=== PATIENT | female | born 1955 | race Caucasian/White ===

== ENCOUNTER → 2016-09-22 08:37 | Day surgery (SDC) | payer BC ==
[~2016-09-22 08:37] MED LIST: Buffered Lidocaine 1% SYRIN* 3 ML/SYR SYRINGE INTRADERM ONE; Bupivacaine 0.25% EPI 200,000* 30 ML SDV ONE; Bupivacaine 0.25% SDV* 30 ML ONE; DiMENhydriNATE IV* 50 MG/ML VIAL IV PUSH PRN; Ketorolac INJ* 30 MG/ML 1 ML VIAL IV PRN; Lidocaine 2% PF* 5 ML VIAL ONE; Midazolam* 1 MG/ML 2 ML VIAL (2 MG) ONE; Propofol* 10 MG/ML 20 ML BTL IV PUSH ONE; ROPIVACAINE 5 MG/ML 30 ML BTL (0.5%) ONE; Sodium Citrate/Citric Acid* 15 ML UDC ONE; Sodium Citrate/Citric Acid* 15 ML UDC PO ONE; ceFAZolin 2 GM PREMIX(*) 2 GM/50 ML BAG IVPB ONE; fentaNYL* 50 MCG/ML 2 ML VIAL (100 MCG VIAL) IV PRN; fentaNYL* 50 MCG/ML 2 ML VIAL (100 MCG VIAL) ONE
[2016-09-22 14:23] VITALS: BP 111/52
--- NOTE | 2016-09-23 14:56 | OP ---
DATE OF OPERATION: 09/22/16 [facility] DATE OF : 57 SURGEON: Sarai Kapoor MD WALL ATTENDANT: DINA Jiang ANESTHESIOLOGIST: Boom Schofield DO ANESTHESIA: General, interscalene block. PRE-OP DIAGNOSES: Right shoulder high-grade partial thickness rotator cuff tear , bicipital tendinitis, and acromioclavicular joint arthritis. POST-OP DIAGNOSES: Right shoulder high-grade partial thickness rotator cuff tear, bicipital tendinitis, and acromioclavicular joint arthritis. OPERATIVE PROCEDURE: 1. Right shoulder arthroscopy with glenohumeral debridement. 2. Subacromial decompression with acromioplasty. 3. Rotator cuff repair. 4. Distal clavicle excision. 5. Subpectoral biceps tenodesis. INDICATIONS: Paul Rosales is a 61-year-old female, who has had at least 6- month history of right shoulder pain. She is diagnosed with rotator cuff tendinitis, bicipital tendinitis, and AC joint arthritis. She has failed nonoperative management including physical therapy. She declined injection, but then she also tried anti-inflammatories. After extensive discussion, the risks and benefits of surgery versus nonoperative treatment, she elected to proceed with surgery. Risks and benefits were discussed at length included but were not limited to bleeding, infection, damage to nerves, vessels, surrounding structures, the wound nonhealing, persistent pain, failure of the rotator cuff fracture, need for further surgeries, stiffness, scarring, loss of motion, incomplete relief of symptoms, risk of anesthesia, and risk of DVT. She agreed. She also was diagnosed with strep throat approximately a week prior to surgery. She completed a course of antibiotics and was cleared by her primary care physician. IMPLANTS USED: One Healicoil, one MULTIFIX, and one Q-FIX 2.8 mm. COMPLICATIONS: None. ESTIMATED BLOOD LOSS: Minimal. DESCRIPTION OF PROCEDURE: The patient was greeted in the preoperative area by the attending surgeon. Correct extremity was marked and the consent was confirmed. The patient was then brought back to the operative suite, where she was placed in supine position on the operating table. She then underwent interscalene nerve block by the anesthesiologist after which she underwent general anesthesia with LMA intubation. The patient was then placed in the left lateral decubitus position with an axillary roll. All bony prominences were padded. She was supported with a peg board. The right shoulder was draped unsterile with 10 pounds of traction. After appropriate surgical pause indicating site, side, procedure, administration of antibiotics, the standard posterolateral portal was made sharply with an 11 blade. The scope was introduced through the joint and the joint was examined. There was abundant hyperemia in the joint particularly anteriorly in the interval, in the recess, there was abundant scar. The MGHL was very thick. The humeral head had had grade 0 to 1 changes. The glenoid had grade 0 to 1 changes. The posterior and anterior labrum had unstable fraying. The superior labrum had unstable fraying as well. The biceps was inflamed and irritated. Even at the stump, there was erythema and injection. At this point, the anterior portal was made in an outside-in fashion. The shaver was used to debride the anterior, posterior, and superior labrum. A tenotomy was then done using an arthroscopic biter. The stump was shaved back. The inferior recess was intact. The infraspinatus was intact. Supraspinatus had high-grade partial thickness tearing, which was then marked by a PDS suture. The subscap was then identified after small lysis of adhesion that was present anteriorly. The abundant scar tissue was then removed. The subscap was identified and found to be intact. At this point, the debridement was complete and attention was directed to the subacromial space. The scope was repositioned in the subacromial space and there was abundant bursa that was present, that was hyperemic. The lateral portal was made in an outside-in fashion and the shaver was used to debride the soft tissue back. This exposed moderate anterolateral spur, which was then skeletonized using the electrocautery device. The spur was further identified. At this point, the electrocautery device was carried over to the AC joint, which had abundant arthritis. The 4.0 oval over bur was then used to do a small acromioplasty, which carried over to co-plane the AC joint to assist further that portion of the procedure. Once the bursa and all loose debris was removed, attention was directed to the distal clavicle. The bur was brought into the anterior portal. Approximately 8 mm of the distal clavicle was then removed using the bur. This was then checked by confirming via the scope as well as doing gentle mobilization of the clavicle, which demonstrated no further rubbing. After this was complete, final images were obtained. All fluid and debris were removed from this portion. Attention was directed to the rotator cuff. This was probed at the area of the undersurface tear and found to be quite thin. Incision was made to reattach anteriorly. This was then released using the blade as well as the electrocautery device. Once the rotator cuff was then released of its insertion , the greater tuberosity was then prepared using the shaver as well as the rasp to allow for good bony bleeding edge. At this point, decision was made to place one anchor in the middle area of the footprint. The sutures were packed in a horizontal mattress configuration and tied down using arthroscopic knot tying. The tails from the suture were then passed through a MULTIFIX anchor, which was then used and mounted with excellent fixation to the lateral row. At this point, final images were obtained. The shoulder was taken through range of motion and found to be intact. All fluid and debris were removed. Attention was directed to the biceps tenodesis. The bed was airplaned to the right side. The anterior aspect of the shoulder was then prepped again using ChloraPrep. A 15-blade was then used to make an incision in line with the biceps tendon, which encompassed the inferior two- thirds of the pec. The soft tissues were dissected using the Metzenbaum scissors. The pec fascia was identified and then at this point, all dissection was done bluntly. The [place] blade was then used to retract the pec tendon superiorly. The biceps groove was then palpated and identified. A small higinio in the biceps fascia was then made and the biceps was removed. It was found to be inflamed and with adhesions to the bicipital groove. The groove was then prepped in the usual fashion with electrocautery, the lead ball rasp, and the osteotome. The Q-FIX anchor was then drilled unicortically into the bone and the port with excellent purchase. The sutures were then passed through the tendon approximately 1 cm proximal to the musculotendinous junction in a Rodrigo- Rod type configuration. The excess stump was then sharply excised and the sutures were then tied down with good fixation. Once this was complete, the incisions were irrigated thoroughly with fluid. The anterior wound was closed in layers of 2-0 Vicryl and 3-0 Monocryl. The portals were closed with 3-0 nylon. Sterile dressings were applied. The anterior wound was injected with 0.25% Marcaine plain, approximately 20 cc. A Cryo/Cuff as well as an UltraSling were applied. The patient was then awoken from anesthesia and transferred to the PACU in stable condition. POSTOPERATIVE PLAN: She will be nonweightbearing. She will be in a sling for approximately 6 weeks. She will be allowed to work on elbow, wrist, and hand range of motion as well as pendulum starting on postop day 1. DVT prophylaxis was considered, but deferred due to no previous personal or family history. She will be discharged on pain medications as well as antibiotics. I will see the patient back in 10 to 14 days. CC: PCP, Caroline Curry MD* [id number]/CPS #: [id number] MTDD
== END | disposition home or self-care (01) ==
LOC: OREAST 08:37
PROVIDERS: ATTEND Orthopaedic Surgery
DX: M75.101 Unspecified rotator cuff tear or rupture of right shoulder, not specified as traumatic (principal); M75.21 Bicipital tendinitis, right shoulder; M19.211 Secondary osteoarthritis, right shoulder; E11.8 Type 2 diabetes mellitus with unspecified complications; Z79.84 Long term (current) use of oral hypoglycemic drugs; E78.00 Pure hypercholesterolemia, unspecified
CPT/HCPCS: A9270-GY; C1713; C1776; J0690; J2250; J2704; J2795; J3010

== ENCOUNTER 2017-12-25 19:28 | Emergency (ER) | payer BC ==
--- OUTSIDE RECORDS SUMMARY | 2017-12-25 19:56 | XMS REPORT ---
:1955 External Reference #:[id number] Author Organization [facility] Address [address] [place] [address] [place] [address] Phone [phone] Care Team Providers Name Role Phone Julissa Curry MD Primary Care Physician Unavailable Payers Type Date Identification Numbers Payment Provider Subscriber Commercial Effective: Policy Number: BS Silvano Barnes 2012 [id number] PayID: [id number] [address] [address] [place] [id number] Workers Compensation Onset: 2009 Policy Number: TST SCHS Amada Barnes [id number] Plan PayID: [id number] [address] [place] [address] Medigap Part B Effective: 2009 Policy Number: BS Of TOMMY Barnes [id number] Expires: 2011 PayID: [id number] [address] [address] [place] [id number] Advance Directives Type Date Description Status Comment Other Directive 09/18/2016 Health Care Proxy Current and Verified Problems Date Description Provider Status Onset: 01/20/2011 Hyperlipidemia Leigh Vasquez, N.P. Active Onset: 01/15/2014 Diabetes mellitus Leigh Vasquez, N.P. Active Onset: 01/20/2011 Gastroesophageal reflux disease Leigh Vasquez, N.P. Active Onset: 01/20/2011 Migraine Leigh Vasquez, N.P. Active Onset: 01/12/2013 Osteochondropathy Leigh Vasquez, N.P. Active Onset: 01/12/2013 Depressive disorder Leigh Vasquez, N.P. Active Onset: 11/04/2016 Bicipital tenosynovitis Sarai Kapoor MD Active Onset: 11/04/2016 Localized, primary osteoarthritis of the Sarai Kapoor MD Active shoulder region Onset: 11/04/2016 Incomplete rotatr-cuff tear/ruptr of r Sarai Kapoor MD Active shoulder, not trauma Onset: 12/03/2017 Brachial neuritis Sarai Kapoor MD Active Onset: 12/03/2017 Disorder of shoulder Sarai Kapoor MD Active Family History Date Family Member(s) Problem(s) Comments General Hypertension General Cancer : (age 63 Father due to Accident Anxiety Years) Mother Lymphoma (75) Colon Cancer (73), Liver Cancer Age 82 First Daughter Healthy age 27 Adopted First Brother Colon Polyps HTN, Hyperlipidemia, Alcohol Abuse age 62 Second Brother Hypertension Anxiety age 57 First Sister Anxiety age 63 Social History Type Date Description Comments Marital Status 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 - bedtime as 12/26 muscle spasms Alprazolam 09/16 Active Tablets 0.25mg 20tab one by mouth M25.511 s up to three Varn, N.P. times daily as needed for anxiety Fluticasone 06/11 Active Suspension 50mcg/Act 16uni spray 2 J02.0 ts sprays into Varn, N.P. each nostril one time daily Topamax 01/16 Active Tablets 25mg 360ta 2 tablets G43.909 bs twice a day Varn, N.P. Escitalopram 06/23 Active Tablets 20mg 90tab take 1 s tablet by Varn, N.P. mouth every day One Touoch 01/13 Active 360un test 4 times E11.9 Julissa Ultra Test /2013 its daily - one Cotton, Strips fasting and M.D. 2 hours after meals. dx: 250.00 Metformin HCL 05/17 Active Tablets ER 500mg 90tab Take 1 R73.01 24HR s Tablet By Varn, N.P. Mouth Every Day With Dinner Crestor 03/05 Active Tablets 5mg 90tab take 1 s tablet by Varn, N.P. mouth one time daily Naproxen 01/16 Active Tablets 500mg 60tab take one Sanam s tablet by Felipa, mouth twice M.D., FACP a day as needed Omeprazole 04/[address] 20mg 180ca Take 1 ps Capsule By Varstacia, N.P. Mouth Two Times Daily Calcium + D Active Tablets 500/ 400 1 po bid Fish Oil Active Capsules 1200mg 1 po qd Unknown Burp- Imitrex Active Tablets 50mg 42tab take 1 s tablet by Varstacia, N.P. mouth at onset of headache, may repeat one time after 2 hours if needed Oxycodone-Acet 09/22 Hx Tablets 5-325mg 40tab 1 tabs by Sarai amino s mouth every MD Antwon - 6 hours as 11/24 needed pain Cephalexin 09/22 Hx Tablets 500mg 20tab take 1 by keli s mouth four MD Antwon - times a day 06/06 x 5 Amoxicillin 09/17 Hx Capsules 500mg 30cap one by mouth J02.0 s 3 times a Varn, N.P. - day x 10 Lidocaine 09/17 Hx Solution 2% 100ml swish and J02.0 gargle every Varn, N.P. - 3- 4 hours 10/01 as needed /2016 Vicodin 09/16 Hx Tablets 5-300mg 20tab take 1 by M25.511 s mouth every Varn, N.P. - 6 hours as 01/20 needed Augmentin 06/11 Hx Tablets 875-125mg 20tab one by mouth J02.0 s every 12 Varn, N.P. - hours for 06/21 Metaxalone 03/19 Hx Tablets 800mg 30tab take 1 G43.909 s tablet at Varn, N.P. - bedtime as 06/11 needed muscle spasms Metaxalone 06/29 Hx Tablets 800mg 30tab take 1 723.1 s tablet 3 Varn, N.P. - times a day 01/12 as needed Propranolol 06/29 Hx Caps ER 120mg 90cap Take One 346.90 Leigh HCL ER /2012 24HR s Capsule By Varn, N.P. - Mouth Once 01/16 Azithromycin 04/12 Hx Tablets 250mg 6tabs two tabs day 786.2 one, one Juan Jose, - daily till M.D. 05/17 Atorvastatin 01/06 Hx Tablets 10mg 30tab 1 po qd 272.4 Leigh s Varn, N.P. - 03/05 Lyrica 12/29 Hx Capsules 100mg 28cap 1 capsule s bid Varn, N.P. - 01/12 Flonase 12/28 Hx Suspension 50mcg/Act 1unit 1 intranasal 477.9 s puff to each Varn, N.P. - nostril 01/12 Ciclopirox 12/28 Hx Solution 8% 6.6ml apply to 110.1 Leigh Nail Lacquer entire nail Varn, N.P. - and 08/03 skin until clear Lyrica 12/28 Hx Capsules 50mg 120ca 2 capsules ps bid Varn, N.P. - 05/17 Azithromycin 10/16 Hx Tablets 250mg 6tabs 2 tabs po qd 462 x1 day, 1 Lolita Simpson, - tab po qd x M.D.,FACP 12/28 4 days Acyclovir 10/16 Hx Capsules 200mg 25cap 1 cap 5 528.00 s times daily Lolita Simpson, - x 5 days M.D.,FACP 12/28 1 01/20 Hx Tablets 250mg 6tabs two tabs day 466.0 Julissa one, one Cotton, - daily till M.D. 01/20 Proair HFA 01/20 Hx Aerosol 108(90Bas 3unit 1 to 2 466.0 Julissa e) mcg/ac s inhalations Cotton, - before M.D. 02/19 exercise prn Tessalon 01/20 Hx Capsules 100mg 30cap one po tid 466.0 Julissa Perl s prn cough Cotton, - M.D. 01/30 Triamcinolone 01/20 Hx Cream 0.1% 30gm apply bid 910.5 Julissa Acetonide until clear Cotton, - M.D. 10/16 Azithromycin 01/20 Hx Tablets 250mg 6tabs two tabs day 466.0 one, one Felipa, - daily till M.D., FACP 08/26 Xanax 12/20 Hx Tablets 0.25mg 20tab one by mouth s up to three Felipa, - times daily M.D., FACP 06/11 as needed /2015 for anxiety Transderm-Scop 12/20 Hx Patches 1.5mg 10uni apply one 72HR ts patch behind Felipa, - ear every 72 M.D., FACP Propranolol 09/12 Hx Caps ER 120mg 90cap Take One Sanam HCL 24HR s Capsule By Felipa, - Mouth Every M.D., FACP Vicodin 04/25 Hx Tablets 5-500mg 30tab 1-2 by mouth s every 4-6 Felipa, - hours and M.D., FACP 12/20 needed for pain Inderal LA 04/25 Hx Caps ER 120mg One PO Daily 24HR Felipa, - M.D., FACP 09/12 Topamax 04/25 Hx Tablets 25mg 60tab 1 tablet Sanam s twice a day Felipa, - M.D., FACP 04/29 Lovaza 11/11 Hx Capsules 1gm 60cap Take One Sanam /2009 s Capsule By Felipa, - Mouth Twice M.D., FACP 06/29 A Day /2012 Citalopram 04/25 Hx Tablets 40mg 90tab take one Leigh Hydrobromide s tablet by Christina, N.P. - mouth once 06/23 /2014 Lyrica 01/11 Hx Capsules 150mg 60cap 1 capsule Leigh /2009 s twice a day Varn, N.P. - 12/28 Cetirizine HCL Hx Tablets 10mg 30tab 1 po qd Unknown /0000 s - 03/06 Cetirizine HCL Hx Tablets 10mg 30tab 1 po qd Unknown /0000 s - 01/13 Medications Administered in Office Medication Date Status Form Strength Qnty SIG Indications Ordering Provider Triamcinolone 12/03/ Administered Injection Zaneb (Kenalog) 2017 MD Antwon Triamcinolone 01/20/ Administered Injection Zaneb (Kenalog) 2016 MD Antwon Immunizations CPT Code Status Date Vaccine Reaction Lot # [id number] Given 03/12/2017 Influenza Virus Vaccine, No immediate [id number] Quadrivalent, Split, reaction..jh Preservative Free 94701 Given 03/19/2016 Influenza Virus Vaccine, no reaction noted ... [id number] Quadrivalent, Split Virus, hh Im Use 00430 Given 03/19/2015 Influenza Virus Vaccine, [id number] Quadrivalent, Split, Preservative Free 22802 Given 01/16/2015 Pneumonia Vaccine [id number] 08224 Given 03/07/2014 Influenza Virus Vaccine, [id number] Quadrivalent, Split, Preservative Free 66169 Given 12/29/2011 Zoster (Zostavax) [id number] 38749 Given 04/03/2011 Tdap - [id number] Tetanus/Diptheria/Acellular Pertussis 83812 Given 08/06/2009 Influenza Virus Vaccine, Pandemic Formulation 67085 Given 08/06/2009 Administration Swine Flu Shot 78000 Given 03/06/2009 Influenza Virus 3Yrs & Over Vital Signs Date Vital Result Comment 12/07/2017 Height 65 inches 5'5" Weight 153.00 lb Heart Rate 70 /min BP Systolic Sitting 121 mmHg BP Diastolic Sitting 74 mmHg Pain Level 1 just had cortisone injection x2 days ago BMI (Body Mass Index) 25.5 kg/m2 12/03/2017 Height 65 inches 5'5" Weight 153.00 lb Heart Rate 70 /min BP Systolic 108 mmHg BP Diastolic 70 mmHg Body Temperature 98.1 F Pain Level 2 BMI (Body Mass Index) 25.5 kg/m2 10/15/2017 Height 65 inches 5'5" Weight 154.00 lb Heart Rate 89 /min Body Temperature 97.5 F O2 % BldC Oximetry 99 % BMI (Body Mass Index) 25.6 kg/m2 03/26/2017 Height 65 inches 5'5" Weight 156.00 lb BP Systolic 108 mmHg BP Diastolic 74 mmHg Respiratory Rate 18 /min Pain Level 0 BMI (Body Mass Index) 26.0 kg/m2 03/12/2017 Weight 155.00 lb Heart Rate 82 /min BP Systolic 108 mmHg BP Diastolic 70 mmHg Body Temperature 98.0 F O2 % BldC Oximetry 98 % 02/19/2017 Height 65 inches 5'5" Weight 156.00 lb Respiratory Rate 14 /min Pain Level 3 BMI (Body Mass Index) 26.0 kg/m2 01/20/2017 Height 65 inches 5'5" Weight 156.00 lb BP Systolic 119 mmHg BP Diastolic 82 mmHg Body Temperature 98.6 F Pain Level 3 BMI (Body Mass Index) 26.0 kg/m2 11/04/2016 Height 65 inches 5'5" Weight 156.00 lb BP Systolic 107 mmHg BP Diastolic 69 mmHg Respiratory Rate 14 /min Pain Level 3 BMI (Body Mass Index) 26.0 kg/m2 10/07/2016 Height 65 inches 5'5" Weight 156.00 lb Respiratory Rate 16 /min Pain Level 5 BMI (Body Mass Index) 26.0 kg/m2 09/17/2016 Weight 156.50 lb Heart Rate 120 /min BP Systolic 112 mmHg BP Diastolic 76 mmHg Body Temperature 101.3 F O2 % BldC Oximetry 97 % 09/16/2016 Height 66 inches 5'6" Weight 158.00 lb Heart Rate 93 /min BP Systolic Sitting 110 mmHg BP Diastolic Sitting 70 mmHg Body Temperature 98.2 F O2 % BldC Oximetry 98 % BMI (Body Mass Index) 25.5 kg/m2 09/12/2016 Height 66 inches 5'6" Weight 159.00 lb Heart Rate 79 /min BP Systolic Sitting 126 mmHg BP Diastolic Sitting 84 mmHg Body Temperature 97.7 F O2 % BldC Oximetry 97 % BMI (Body Mass Index) 25.7 kg/m2 09/09/2016 Height 66 inches 5'6" Weight 153.00 lb Heart Rate 88 /min BP Systolic 120 mmHg BP Diastolic 74 mmHg Respiratory Rate 16 /min Pain Level 6 BMI (Body Mass Index) 24.7 kg/m2 08/26/2016 Height 66 inches 5'6" Weight 153.00 lb Heart Rate 78 /min BP Systolic 128 mmHg BP Diastolic 82 mmHg Respiratory Rate 14 /min Body Temperature 97.5 F Pain Level 4 BMI (Body Mass Index) 24.7 kg/m2 06/11/2016 Height 66 inches 5'6" Weight 154.00 lb Heart Rate 114 /min BP Systolic 110 mmHg BP Diastolic 68 mmHg Body Temperature 98.1 F O2 % BldC Oximetry 97 % BMI (Body Mass Index) 24.9 kg/m2 06/03/2016 Height 66 inches 5'6" Weight 153.00 lb Respiratory Rate 16 /min Pain Level 2 BMI (Body Mass Index) 24.7 kg/m2 04/22/2016 Height 66 inches 5'6" Weight 153.00 lb Heart Rate 83 /min BP Systolic 102 mmHg BP Diastolic 69 mmHg BMI (Body Mass Index) 24.7 kg/m2 03/19/2016 Weight 157.00 lb Heart Rate 81 /min BP Systolic Sitting 122 mmHg BP Diastolic Sitting 71 mmHg Respiratory Rate 15 /min Body Temperature 98.5 F O2 % BldC Oximetry 98 % 02/21/2016 Weight 153.00 lb Heart Rate 101 /min BP Systolic Sitting 100 mmHg BP Diastolic Sitting 66 mmHg O2 % BldC Oximetry 98 % 11/05/2015 Weight 148.00 lb Heart Rate 86 /min BP Systolic Sitting 100 mmHg BP Diastolic Sitting 62 mmHg Body Temperature 97.3 F O2 % BldC Oximetry 98 % 10/26/2015 Weight 153.50 lb Heart Rate 83 /min BP Systolic Sitting 105 mmHg BP Diastolic Sitting 73 mmHg Body Temperature 97.6 F O2 % BldC Oximetry 97 % 03/19/2015 Weight 181.00 lb Heart Rate 98 /min BP Systolic Sitting 110 mmHg BP Diastolic Sitting 72 mmHg Body Temperature 97.8 F O2 % BldC Oximetry 96 % 01/16/2015 Height 66.5 inches 5'6.50" Weight 187.31 lb Heart Rate 73 /min BP Systolic Sitting 117 mmHg BP Diastolic Sitting 79 mmHg BMI (Body Mass Index) 29.8 kg/m2 10/19/2014 Height 66.5 inches 5'6.50" Weight 187.00 lb Heart Rate 74 /min BP Systolic 93 mmHg BP Diastolic 63 mmHg Body Temperature 98.2 F BMI (Body Mass Index) 29.7 kg/m2 03/07/2014 Weight 179.50 lb Heart Rate 76 /min BP Systolic Sitting 108 mmHg BP Diastolic Sitting 68 mmHg Body Temperature 97.8 F O2 % BldC Oximetry 96 % 01/13/2014 Height 66.5 inches 5'6.50" Weight 189.00 lb Heart Rate 72 /min BP Systolic Sitting 100 mmHg BP Diastolic Sitting 72 mmHg Body Temperature 97.4 F BMI (Body Mass Index) 30.0 kg/m2 12/05/2013 Weight 190.50 lb Heart Rate 64 /min BP Systolic Sitting 110 mmHg BP Diastolic Sitting 80 mmHg 11/11/2013 Weight 191.00 lb Heart Rate 74 /min BP Systolic Sitting 118 mmHg BP Diastolic Sitting 76 mmHg 02/01/2013 Weight 187.00 lb Heart Rate 74 /min BP Systolic Sitting 118 mmHg BP Diastolic Sitting 70 mmHg 01/12/2013 Height 66.5 inches 5'6.50" Weight 188.00 lb Heart Rate 68 /min BP Systolic Sitting 104 mmHg BP Diastolic Sitting 80 mmHg BMI (Body Mass Index) 29.9 kg/m2 08/03/2012 Height 67.5 inches 5'7.50" Weight 183.25 lb Heart Rate 76 /min BP Systolic Sitting 102 mmHg BP Diastolic Sitting 62 mmHg BMI (Body Mass Index) 28.3 kg/m2 07/30/2012 Height 67.5 inches 5'7.50" Weight 183.50 lb Heart Rate 78 /min BP Systolic Sitting 102 mmHg BP Diastolic Sitting 68 mmHg BMI (Body Mass Index) 28.3 kg/m2 06/29/2012 Height 67.5 inches 5'7.50" Weight 184.00 lb Heart Rate 88 /min BP Systolic 126 mmHg BP Diastolic 86 mmHg BMI (Body Mass Index) 28.4 kg/m2 05/17/2012 Height 67.5 inches 5'7.50" Weight 187.00 lb Heart Rate 72 /min BP Systolic Sitting 100 mmHg BP Diastolic Sitting 64 mmHg BMI (Body Mass Index) 28.9 kg/m2 04/12/2012 Height 67.5 inches 5'7.50" Weight 187.00 lb Heart Rate 76 /min BP Systolic Sitting 126 mmHg BP Diastolic Sitting 84 mmHg Body Temperature 98.3 F BMI (Body Mass Index) 28.9 kg/m2 01/07/2012 Height 67.5 inches 5'7.50" Weight 198.75 lb Heart Rate 60 /min BP Systolic Sitting 110 mmHg BP Diastolic Sitting 78 mmHg BMI (Body Mass Index) 30.7 kg/m2 12/29/2011 Height 67.5 inches 5'7.50" Weight 199.00 lb Heart Rate 72 /min BP Systolic Sitting 110 mmHg BP Diastolic Sitting 78 mmHg Body Temperature 98.6 F BMI (Body Mass Index) 30.7 kg/m2 10/21/2011 Height 67.5 inches 5'7.50" Weight 196.75 lb Heart Rate 60 /min BP Systolic Sitting 116 mmHg BP Diastolic Sitting 76 mmHg BMI (Body Mass Index) 30.4 kg/m2 10/17/2011 Height 67.5 inches 5'7.50" Weight 199.00 lb Heart Rate 72 /min BP Systolic Sitting 118 mmHg BP Diastolic Sitting 82 mmHg Body Temperature 98.7 F BMI (Body Mass Index) 30.7 kg/m2 01/20/2011 Height 66.5 inches 5'6.50" Weight 196.00 lb Heart Rate 78 /min BP Systolic Sitting 116 mmHg BP Diastolic Sitting 78 mmHg Body Temperature 97.7 F BMI (Body Mass Index) 31.2 kg/m2 12/20/2010 Height 66.5 inches 5'6.50" Weight 198.00 lb Heart Rate 60 /min BP Systolic Sitting 110 mmHg BP Diastolic Sitting 70 mmHg BMI (Body Mass Index) 31.5 kg/m2 04/29/2010 Weight 197.50 lb Heart Rate 70 /min BP Systolic 110 mmHg BP Diastolic 78 mmHg 04/25/2010 Weight 197.50 lb Heart Rate 78 /min BP Systolic 124 mmHg BP Diastolic 80 mmHg Results Test Date Test Result H/L Range Note Laboratory test finding 10/15/2017 Hemoglobin A1c (Glyco HGB) 5.2 % 4.0- 5.6 1 Cholesterol 134 mg/dL 2 Comp Metabolic Panel 10/15/2017 Sodium 141 mmol/L 139-145 Potassium 4.1 mmol/L 3.5-5.0 Chloride 108 mmol/L 101-111 Co2 Carbon Dioxide 26 mmol/L 22-32 Anion Gap 7 mmol/L 2-11 Glucose 96 mg/dL 70-100 Blood Urea Nitrogen 18 mg/dL 6-24 Creatinine 0.82 mg/dL 0.51-0.95 BUN/Creatinine Ratio 22.0 High 8-20 Calcium 9.7 mg/dL 8.6-10.3 Total Protein 6.9 g/dL 6.4-8.9 Albumin 4.4 g/dL 3.2-5.2 Globulin 2.5 g/dL 2-4 Albumin/Globulin Ratio 1.8 1-3 Total Bilirubin 0.50 mg/dL 0.2-1.0 Alkaline Phosphatase 56 U/L 34-104 Alt 9 U/L 7-52 Ast 12 U/L Low 13-39 Egfr Non- 70.9 >60 Egfr 91.1 >60 3 Laboratory test finding 10/15/2017 Cytology SEE RESULT BELOW 4, 5 Urine Microalbumin Random 03/12/2017 Urine Creatinine 120.78 mg/dL Ur Microalbumin (mg/L) 23.3 mg/L Urine Microalbumin/Creatinine 19.2 ug/mg <31 Laboratory test finding 03/12/2017 Hemoglobin A1c 5.2 5-7 Lipid Profile (Trig/Chol/HDL) 03/09/2017 Triglycerides 116 mg/dL 6 Cholesterol 143 mg/dL 7 HDL Cholesterol 51.3 mg/dL 8 LDL Cholesterol 69 mg/dL 9 Comp Metabolic Panel 03/09/2017 Sodium 138 mmol/L 133-145 Potassium 3.9 mmol/L 3.5-5.0 Chloride 106 mmol/L 101-111 Co2 Carbon Dioxide 25 mmol/L 22-32 Anion Gap 7 mmol/L 2-11 Glucose 99 mg/dL 70-100 Blood Urea Nitrogen 11 mg/dL 6-24 Creatinine 0.82 mg/dL 0.51-0.95 BUN/Creatinine Ratio 13.4 8-20 Calcium 9.6 mg/dL 8.6-10.3 Total Protein 7.1 g/dL 6.4-8.9 Albumin 4.2 g/dL 3.2-5.2 Globulin 2.9 g/dL 2-4 Albumin/Globulin Ratio 1.4 1-3 Total Bilirubin 0.70 mg/dL 0.2-1.0 Alkaline Phosphatase 56 U/L 34-104 Alt 8 U/L 7-52 Ast 11 U/L Low 13-39 Egfr Non- 71.1 >60 Egfr 91.5 >60 10 Laboratory test 12/19/2016 Surgical Pathology SEE RESULT BELOW 11, 12 finding Laboratory test 09/22/2016 Point of Care Glucose 114 mg/dL High 74-106 13 finding Laboratory test 09/17/2016 Rapid Group A Strep positive finding Laboratory test 09/16/2016 Hemoglobin A1c 5.3 5-7 finding Order 09/12/2016 EKG given to provider Lipid Profile 02/14/2016 Triglycerides 205 mg/dL 14 (Trig/Chol/HDL) Cholesterol 162 mg/dL 15 HDL Cholesterol 42.3 mg/dL 16 LDL Cholesterol 79 mg/dL 17 Comp Metabolic Panel 02/14/2016 Sodium 138 mmol/L 133-145 Potassium 3.8 mmol/L 3.5-5.0 Chloride 106 mmol/L 101-111 Co2 Carbon Dioxide 24 mmol/L 22-32 Anion Gap 8 mmol/L 2-11 Glucose 105 mg/dL High 70-100 Blood Urea Nitrogen 12 mg/dL 6-24 Creatinine 0.81 mg/dL 0.51-0.95 BUN/Creatinine Ratio 14.8 8-20 Calcium 9.7 mg/dL 8.6-10.3 Total Protein 7.5 g/dL 6.4-8.9 Albumin 4.5 g/dL 3.2-5.2 Globulin 3.0 g/dL 2-4 Albumin/Globulin Ratio 1.5 1-3 Total Bilirubin 0.80 mg/dL 0.2-1.0 Alkaline Phosphatase 63 U/L 34-104 Alt 12 U/L 7-52 Ast 15 U/L 13-39 Egfr Non- 72.4 >60 Egfr 93.1 >60 18 Laboratory test 02/14/2016 Hemoglobin A1c (Glyco 5.2 % Less than 6.0 19 finding HGB) Laboratory test 10/26/2015 Hemoglobin A1c (Glyco 4.9 % Less than 6.0 20 finding HGB) Urine Microalbumin 10/26/2015 Ur Microalbumin (mg/L) < 5.0 mg/L Random Urine Creatinine 45.24 mg/dL Urine Microalbumin/Creatinine TNP ug/mg <31 21 Laboratory test finding 01/16/2015 Hemoglobin A1c 5.7 5-7 Lipid Profile (Trig/Chol/HDL) 01/10/2015 Triglycerides 123 mg/dL 22, 23 Cholesterol 145 mg/dL 22, 24 HDL Cholesterol 39.4 mg/dL 22, 25 LDL Cholesterol 81 mg/dL 22, 26 Comp Metabolic Panel 01/10/2015 Sodium 137 mmol/L 133-145 22 Potassium 4.3 mmol/L 3.5-5.0 22 Chloride 103 mmol/L 101-111 22 Co2 Carbon Dioxide 27 mmol/L 22-32 22 Anion Gap 7 mmol/L 2-11 22 Glucose 120 mg/dL High 70-100 22 Blood Urea Nitrogen 12 mg/dL 6-24 22 Creatinine 0.73 mg/dL 0.51-0.95 22 BUN/Creatinine Ratio 16.4 8-20 22 Calcium 9.6 mg/dL 8.6-10.3 22 Total Protein 7.5 g/dL 6.4-8.9 22 Albumin 4.5 g/dL 3.2-5.2 22 Globulin 3.0 g/dL 2-4 22 Albumin/Globulin Ratio 1.5 1-3 22 Total Bilirubin 0.70 mg/dL 0.2-1.0 22 Alkaline Phosphatase 72 U/L 34-104 22 Alt 40 U/L 7-52 22 Ast 37 U/L 13-39 22 Egfr Non- 81.9 >60 22 Egfr 105.3 >60 22, 27 Laboratory test 01/10/2015 TSH (Thyroid Stim 3.57 ?IU/mL 0.34-5.60 22, 28 finding Horm) Laboratory test 10/19/2014 Hemoglobin A1c 5.5 5-7 finding Laboratory test 01/13/2014 Cytology RUN DATE: 29 finding 01/16/ <SEE NOTE> HPV High Risk 01/13/2014 Human Papillomavirus See Comment 30 Source HPV High Risk Type 16, PCR Negative Negative HPV High Risk Type 18, PCR Negative Negative HPV Other Risk types Negative Negative 31 Laboratory test finding 01/13/2014 Vitamin D 1,25-Dihydroxy 69 pg/mL 18- 78 32 Laboratory test finding 01/13/2014 Hemoglobin A1c 5.7 5-7 Lipid Profile 01/11/2014 Triglycerides 137 mg/dL 33, 34 (Trig/Chol/HDL) Cholesterol 150 mg/dL 33, 35 HDL Cholesterol 39.7 mg/dL 33, 36 LDL Cholesterol 83 mg/dL 33, 37 Laboratory test finding 01/11/2014 Glucose 126 mg/dL High 70-100 33, 38 Laboratory test finding 11/12/2013 Ferritin 103.2 ng/mL 11-307 TSH (Thyroid Stimulating Horm) 2.31 IU/mL 0.34-5.60 Vitamin B12 260 pg/mL 180-914 39 Laboratory test finding 05/13/2013 Glucose 126 mg/dL High 70-100 Hemoglobin A1c 5.5 % Less than 6.0 40 Comp Metabolic Panel 01/13/2013 Sodium 134 mmol/L 133-145 Potassium 4.1 mmol/L 3.5-5.0 Chloride 103 mmol/L 101-111 Co2 Carbon Dioxide 24.0 mmol/L 22-32 Anion Gap 7.0 mmol/L 2-11 Glucose 139 mg/dL High 70-100 Blood Urea Nitrogen 11 mg/dL 6-24 Creatinine 0.70 mg/dL 0.50-1.40 BUN/Creatinine Ratio 15.7 8-20 Calcium 9.8 mg/dL 8.1-9.9 Total Protein 7.2 g/dL 6.2-8.1 Albumin 4.2 g/dL 3.6-5.4 Globulin 3.0 g/dL 2-4 Albumin/Globulin Ratio 1.4 1-3 Total Bilirubin 1.2 mg/dL 0.4-1.5 Alkaline Phosphatase 73 U/L 30-110 Alt 47 U/L 14-54 Ast 41 U/L 12-42 Egfr Non- 86.6 >60 Egfr 111.3 >60 41 Lipid Profile (Trig/Chol/HDL) 01/13/2013 Triglycerides 141 mg/dL 40-200 Cholesterol 152 mg/dL Less than 200 HDL Cholesterol 41 mg/dL 40-60 42 Cholesterol/HDL Ratio 3.7 Average 1-4.44 LDL Cholesterol 82.8 Less Than 100 43 Laboratory test 01/13/2013 Hemoglobin A1c 5.9 % Less than 6.0 44 finding Vitamin D, 25 Hydroxy 01/13/2013 25-Hydroxy Vitamin D2 <4.0 ng/mL 25-Hydroxy Vitamin D3 30 ng/mL 25-Hydroxy Vitamin D Total 30 ng/mL 45 Vitamin D 1,25 And 01/13/2013 Vitamin D 1,25-Dihydroxy 51 pg/mL 18-78 46 Vitamin D,2 Laboratory test finding 06/26/2012 Glucose 119 mg/dL High 70-100 Lipid Profile 06/26/2012 Triglycerides 67 mg/dL 40-200 (Trig/Chol/HDL) Cholesterol 145 mg/dL Less than 200 HDL Cholesterol 45 mg/dL 40-60 47 Cholesterol/HDL Ratio 3.2 Average 1-4.44 LDL Cholesterol 86.6 mg/dL Less Than 100 48 Laboratory test finding 05/17/2012 Hemoglobin A1c 5.9 5-7 Lipid Profile (Trig/Chol/HDL) 04/24/2012 Triglycerides 81 mg/dL 40-200 Cholesterol 126 mg/dL Less than 200 HDL Cholesterol 40 mg/dL 40-60 49 Cholesterol/HDL Ratio 3.2 AVERAGE 1-4.44 LDL Cholesterol 69.8 mg/dL Less Than 100 50 Liver Function Panel 04/24/2012 Total Protein 6.9 GM/DL 6.2-8.1 Albumin 3.9 GM/DL 3.6-5.4 Globulin 3.0 GM/DL 2-4 Albumin/Globulin Ratio 1.3 1-3 Total Bilirubin 1.0 mg/dL 0.1-1.0 51 Direct Bilirubin 0.1 mg/dL 0.1-0.5 Indirect Bilirubin 0.9 mg/dL 0.3-1.0 Alkaline Phosphatase 66 U/L 30-110 Alt 59 U/L High 14-54 Ast 46 U/L High 12-42 Laboratory test finding 04/24/2012 Glucose 130 mg/dL High 70-100 52 Liver Function Panel 03/01/2012 Total Protein 6.7 GM/DL 6.2-8.1 Albumin 3.8 GM/DL 3.6-5.4 Globulin 2.9 GM/DL 2-4 Albumin/Globulin Ratio 1.3 1-3 Bilirubin Total 1.2 mg/dL 0.4-1.5 53 Bilirubin Direct 0.2 mg/dL 0.1-0.5 Indirect Bilirubin 1.0 mg/dL 0.3-1.0 54 Alkaline Phosphatase 60 U/L 30-110 Alt (SGPT) 86 U/L High 14-54 Ast (Sgot) 67 U/L High 12-42 Lipid Profile (Trig/Chol/HDL) 03/01/2012 Triglyceride 117 mg/dL 40-200 Cholesterol 131 mg/dL Less Than 200 55 High Density Lipoprotein 35 mg/dL Low 40-60 56 Cholesterol/HDL Ratio 3.74 AVERAGE 1-4.44 Low Density Lipoprotein 73 mg/dL Less Than 100 57 Surgical Pathology 02/02/2012 Surgical <SEE 58 Pathology NOTE> Laboratory test 01/01/2012 Hemoglobin A1c 6.0 % Less Than 59 finding 6.0 Vitamin D, 25 01/01/2012 25-Hydroxy <4.0 ng/mL () Hydroxy Vitamin D2 25-Hydroxy Vitamin D3 31 ng/mL () 25-Hydroxy Vitamin D Total 31 ng/mL () 60 Vitamin D 1,25 And 01/01/2012 Vitamin D, 1,25 67 pg/mL 18-78 61 Vitamin D,2 Dihydroxy Laboratory test finding 01/01/2012 TSH 2.30 MIU/ML 0.34-5.60 Lipid Profile 01/01/2012 Triglyceride 183 mg/dL 40-200 (Trig/Chol/HDL) Cholesterol 258 mg/dL High Less Than 200 62 High Density Lipoprotein 39 mg/dL Low 40-60 63 Cholesterol/HDL Ratio 6.62 AVERAGE High 1-4.44 Low Density Lipoprotein 182 mg/dL High Less Than 100 64 Comp Metabolic Panel 01/01/2012 Sodium 135 mmol/L 135-145 Potassium 4.1 mmol/L 3.5-5.0 Chloride 102 mmol/L 101-111 Co2 (Carbon Dioxide) 24.0 mmol/L 22-32 Anion Gap 9.0 mmol/L 2-11 65 Glucose 129 mg/dL High 70-100 BUN 16 mg/dL 6-24 Creatinine 0.7 mg/dL 0.50-1.40 One Over Creatinine 1.42 BUN/Creatinine Ratio 22.9 High 8-20 Calcium 9.1 mg/dL 8.1-9.9 Total Protein 6.6 GM/DL 6.2-8.1 Albumin 3.9 GM/DL 3.6-5.4 Globulin 2.7 GM/DL 2-4 Albumin/Globulin Ratio 1.4 1-3 Bilirubin Total 0.8 mg/dL 0.4-1.5 66 Alkaline Phosphatase 65 U/L 30-110 Alt (SGPT) 59 U/L High 14-54 Ast (Sgot) 47 U/L High 12-42 eGFR Non- 86.9 > 60 eGFR 111.7 > 60 67 Laboratory test 12/29/2011 Cytology <SEE 68 finding NOTE> Laboratory test 10/17/2011 Throat Culture <SEE 69 finding Full NOTE> CBC With Manual 12/24/2010 White Blood Count 5.3 CUMM 4.8-10.8 Diff Red Cell Count 4.77 CUMM 4.2-5.4 Hemoglobin 14.9 g/dL 12.0-16.0 Hematocrit 43 % 35-47 Mean Corpuscular Volume 91 um3 79-97 Mean Corpuscular Hemoglob 31 pg 27-31 Mean Corpuscular HGB Cone 34 g/dL 32-36 Redcell Distribution WDTH 13 % 10.5-15 Platelet Count 259 CUMM 150-450 Mean Platelet Volume 8.2 um3 7.4-10.4 Polysegmented Neutrophil 36 % Low 38-83 Lymphocyte 56 % High 25-47 Monocyte 2 % 0-13 Eosinophil 1 % 0-6 Atypical Lymph 5 % 0-6 Absolute Neutrophil Count 1.9 Anisocytosis SLIGHT Manual Diff Comments (SEE NOTE) 70 Vitamin D, 25 Hydroxy 12/24/2010 25-Hydroxy Vitamin D2 <4.0 ng/mL () 25-Hydroxy Vitamin D3 31 ng/mL () 25-Hydroxy Vitamin D Total 31 ng/mL () 71 Laboratory test finding 12/24/2010 TSH 2.96 MIU/ML 0.34-5.60 Comp Metabolic Panel 12/24/2010 Sodium 139 mmol/L 135-145 Potassium 4.0 mmol/L 3.5-5.0 Chloride 106 mmol/L 101-111 Co2 (Carbon Dioxide) 25.0 mmol/L 22-32 Anion Gap 8.0 mmol/L 2-11 72 Glucose 129 mg/dL High 70-100 BUN 14 mg/dL 6-24 Creatinine 0.60 mg/dL 0.50-1.40 One Over Creatinine 1.60 BUN/Creatinine Ratio 23.3 High 8-20 Calcium 9.3 mg/dL 8.1-9.9 Total Protein 6.8 GM/DL 6.2-8.1 Albumin 3.9 GM/DL 3.6-5.4 Globulin 2.9 GM/DL 2-4 Albumin/Globulin Ratio 1.3 1-3 Bilirubin Total 0.9 mg/dL 0.4-1.5 73 Alkaline Phosphatase 63 U/L 30-110 Alt (SGPT) 47 U/L 14-54 Ast (Sgot) 36 U/L 12-42 eGFR Non- 104.2 > 60 eGFR 134.0 > 60 74 Lipid Profile (Trig/Chol/HDL) 12/24/2010 Triglyceride 162 mg/dL 40-200 Cholesterol 232 mg/dL High Less Than 200 75 High Density Lipoprotein 33 mg/dL Low 40-60 76 Cholesterol/HDL Ratio 7.03 AVERAGE High 1-4.44 Low Density Lipoprotein 167 mg/dL High Less Than 100 77 Laboratory test finding 12/20/2010 Cytology <SEE NOTE> 78 1 Therapeutic target for the treatment of diabetes mellitus patients is <7% HBA1C, and in selective patients <6.0%. Please refer to [place] [employer] diabetic care guidelines for further information. 2 Desirable: <200 Borderline High: 200-239 High: >239 3 Because ethnic data is not always readily available, this report includes an eGFR for both -Americans and non- Americans. The National Kidney Disease Education Program (NKDEP) does not endorse the use of the MDRD equation for patients that are not between the ages of 18 and 70, are , have extremes of body size, muscle mass, or nutritional status, or are non- or non-. According to the National Kidney Foundation, irrespective of diagnosis, the stage of the disease is based on the level of kidney function: Stage Description GFR(mL/min/1.73 m(2)) 1 Kidney damage with normal or decreased GFR 90 2 Kidney damage with mild decrease in GFR 60-89 3 Moderate decrease in GFR 30-59 4 Severe decrease in GFR 15-29 5 Kidney failure <15 (or dialysis) 4 [id number] 5 SEE RESULT BELOW Name: AMADA BARNES : [address]: Leigh Vasquez NP Acct: [id number] Unit: [id number] AGE: 62 Location: [facility] Re10/15/17 SEX: F Status: REG REF SPEC: [id number] JAMES: 10/15/17-[address]: Leigh Vasquez NP REQ: [id number] RECD: 10/16/17 STATUS: SOUT _ ORDERED: TP IMAGE ANALYS, HPV/Thin Prep, HPV 16/18 GENE COMMENTS: [id number] Negative for Intraepithelial lesion or Malignancy A. Ectocervical/Endocervical Specimen Adequacy: Satisfactory of evaluation Transformation zone component cannot be definitely identified due to presence of atrophy or other hormonal changes Patient Information: HPV: High risk HPV RNA testing regardless of pap results. HPV 16/18 Genotype Reflex Actual Specimen Date: 10/16/17 LMP If Unknown: age 51 Spec Date if unknown: 2013 ?: N Post Menopausal?: N Hysterectomy?: N Previous Abnormal Pap Smears?:N Date Time Test Result Flag (u) Normal Range 10/15/17 1021 @ HPV RNA RFLX GE Negative Negative @ @ The high-risk HPV types detected by the assay include: 16, @ 18, 31, 33, 35, 39, 45, 51, 52, 56, 58, 59, 66, and 68. Signed by and Reported on: ILSA Sanchez(ASCP) 1048 This Pap test was evaluated with the assistance of the RegisterPatientPrep Test Imaging System. Due to cytologic findings at the pyrotechnic assembler microscope, comprehensive manual rescreening by a Stock Chaser may be required. The Pap Smear is a screening test designed to aid in the detection of premalignant and malignant conditions of the uterine cervix. It is not a diagnostic procedure and should not be used as the sole means of detecting cervical cancer. Both false- positive and false- negative reports do occur. Depending on your risk status, a Pap smear should be obtained and evaluated every 1-3 years. END OF REPORT DEPARTMENT OF PATHOLOGY, [address] [place] [address] Manjit Cabral M.D. Director [facility] # [id number] 6 Desirable <150 Borderline high 150-199 High 200-499 Very High >500 7 Desirable <200 Borderline high 200-239 High >239 8 Low <40 Desirable: 40-60 High: >60 9 Desirable: <100 mg/dL Near Optimal: 100-129 mg/dL Borderline High: 130-159 mg/dL High: 160-189 mg/dL Very High: >189 mg/dL 10 Because ethnic data is not always readily available, this report includes an eGFR for both -Americans and non- Americans. The National Kidney Disease Education Program (NKDEP) does not endorse the use of the MDRD equation for patients that are not between the ages of 18 and 70, are , have extremes of body size, muscle mass, or nutritional status, or are non- or non-. According to the National Kidney Foundation, irrespective of diagnosis, the stage of the disease is based on the level of kidney function: Stage Description GFR(mL/min/1.73 m(2)) 1 Kidney damage with normal or decreased GFR 90 2 Kidney damage with mild decrease in GFR 60-89 3 Moderate decrease in GFR 30-59 4 Severe decrease in GFR 15-29 5 Kidney failure <15 (or dialysis) 11 [id number] 12 SEE RESULT BELOW Name: AMADA BARNES : [address]: Gulshan Villafuerte MD Acct: [id number] Unit: [id number] AGE: 61 Location: [facility] Re12/19/16 SEX: F Status: DEP REF SPEC: [id number] JAMES: 12/19/16- SUBM DR: Gulshan Villafuerte MD REQ: [id number] RECD: 12/19/16-1216 STATUS: SHAYLA GEIGER DR: Julissa Curry MD _ ORDERED: LEVEL 4/4 COMMENTS: [id number] FINAL DIAGNOSIS 1. Colon, 45 cm, biopsy: -- Hyperplastic polyp. 2. Colon, 60 cm, biopsy: -- Tubular adenoma. -- No high grade dysplasia or malignancy. 3. Colon, 30 cm, biopsy: -- Hyperplastic polyp. 4. Colon, 25 cm, biopsy: -- Tubular adenoma. -- No high grade dysplasia or malignancy. CLINICAL HISTORY No history given POST-OPERATIVE DIAGNOSIS Colonoscopy to terminal ileum, 5 polyps; 5 years GROSS DESCRIPTION 1. The specimen is received in formalin labeled, Colon Polyp at 45 cm, and consists of a 0.6 x 0.5 x 0.1 cm aggregate of caban-pink irregular soft tissue fragments which is submitted entirely in one cassette. CONTINUED ON NEXT PAGE * ML=Testing performed at Main Lab DEPARTMENT OF PATHOLOGY, [address] [place] [address] Manjit Cabral M.D. Director [facility] # [id number] RUN DATE: 12/22/16 [facility] LAB LIVE PAGE 2 Patient: AMADA BARNES [id number] (Continued) GROSS DESCRIPTION (Continued) GROSS DESCRIPTION (Continued) 2. The specimen is received in formalin labeled, Biopsy Colon Polyp at 60 cm, and consists of a 0.8 x 0.6 x 0.2 cm aggregate of caban-pink irregular soft tissue fragments which is submitted entirely in one cassette. 3. The specimen is received in formalin labeled, Biopsy Colon Polyp at 30 cm, and consists of two caban-pink polypoid soft tissue fragments measuring 0.2 x 0.2 x 0.2 cm and 0.4 x 0.2 x 0.2 cm which are submitted entirely in one cassette. 4. The specimen is received in formalin labeled, Biopsy Colon Polyps at 25 cm, and consists of two caban-pink irregular soft tissue fragments measuring 0.3 x 0.2 x 0.2 cm and 0.5 x 0.1 x 0.1 cm which are submitted entirely in one cassette. Signed (signature on file) Manjit Cabral MD 1358 END OF REPORT * ML=Testing performed at Main Lab DEPARTMENT OF PATHOLOGY, [address] [place] [address] Manjit Cabral M.D. Director [facility] # [id number] 13 Supervisor Powdered Metal: [id number] 14 Desirable <150 Borderline high 150-199 High 200-499 Very High >500 15 Desirable <200 Borderline high 200-239 High >239 16 Low <40 Desirable: 40-60 High: >60 17 Desirable: <100 mg/dL Near Optimal: 100-129 mg/dL Borderline High: 130-159 mg/dL High: 160-189 mg/dL Very High: >189 mg/dL 18 Because ethnic data is not always readily available, this report includes an eGFR for both -Americans and non- Americans. The National Kidney Disease Education Program (NKDEP) does not endorse the use of the MDRD equation for patients that are not between the ages of 18 and 70, are , have extremes of body size, muscle mass, or nutritional status, or are non- or non-. According to the National Kidney Foundation, irrespective of diagnosis, the stage of the disease is based on the level of kidney function: Stage Description GFR(mL/min/1.73 m(2)) 1 Kidney damage with normal or decreased GFR 90 2 Kidney damage with mild decrease in GFR 60-89 3 Moderate decrease in GFR 30-59 4 Severe decrease in GFR 15-29 5 Kidney failure <15 (or dialysis) 19 Therapeutic target for the treatment of diabetes Mellitus patients is <7% HBA1C, and in selective patients <6.0%.Please refer to [place] [employer] Diabetic care guidelines for further information. 20 Therapeutic target for the treatment of diabetes Mellitus patients is <7% HBA1C, and in selective patients <6.0%.Please refer to [place] [employer] Diabetic care guidelines for further information. 21 Unable to calculate due to low microalbumin 22 PT IS FASTING 23 Desirable <150 Borderline high 150-199 High 200-499 Very High >500 24 Desirable <200 Borderline high 200-239 High >239 25 Low <40 Desirable: 40-60 High: >60 26 Desirable: <100 mg/dL Near Optimal: 100-129 mg/dL Borderline High: 130-159 mg/dL High: 160-189 mg/dL Very High: >189 mg/dL 27 Because ethnic data is not always readily available, this report includes an eGFR for both -Americans and non- Americans. The National Kidney Disease Education Program (NKDEP) does not endorse the use of the MDRD equation for patients that are not between the ages of 18 and 70, are , have extremes of body size, muscle mass, or nutritional status, or are non- or non-. According to the National Kidney Foundation, irrespective of diagnosis, the stage of the disease is based on the level of kidney function: Stage Description GFR(mL/min/1.73 m(2)) 1 Kidney damage with normal or decreased GFR 90 2 Kidney damage with mild decrease in GFR 60-89 3 Moderate decrease in GFR 30-59 4 Severe decrease in GFR 15-29 5 Kidney failure <15 (or dialysis) 28 PT IS FASTING 29 RUN DATE: 01/16/14 [facility] LAB LIVE PAGE 1 RUN TIME: 4194 [address] [place], [place] [address] Specimen Inquiry Name: CAMERONAMADA : [address]: Leigh Vasquez NETWORK PROGRAMMER Acct: [id number] Unit: [id number] AGE: 58 Location: [facility] Re01/13/14 SEX: F Status: REG REF SPEC: [id number] AJMES: 01/13/14-[address] [facility] [address]: Leigh Vasquez NP REQ: [id number] RECD: 01/13/14 STATUS: SOUT _ ORDERED: IMAGE ANALYSIS, HPV/Thin Prep FINAL DIAGNOSIS Negative for Intraepithelial lesion or Malignancy COMMENTS: Specimen sent to [facility] in [place], [place] on 01/16/14 by JESSICA at 1425. Results will be reported separately. A. Ectocervical/Endocervical Specimen Adequacy: Satisfactory of evaluation Transformation zone component identified Predominance of white blood cells Patient Information: HPV: High risk HPV DNA testing regardless of pap results. Actual Specimen Date: 01/13/14 LMP If Unknown: unknown ?: N Post Menopausal?: Y Hysterectomy?: N Previous Abnormal Pap Smears?:N Signed (signature on file) ILSA Pedraza (ASCP) 01/16 0004 This Pap test was evaluated with the assistance of the ThinPrep Test Imaging System. Due to cytologic findings at the pyrotechnic assembler microscope, comprehensive manual rescreening by a Stock Chaser may be required. The Pap Smear is a screening test designed to aid in the detection of premalignant and malignant conditions of the uterine cervix. It is not a diagnostic procedure and should not be used as the sole means of detecting cervical cancer. Both false- positive and false- negative reports do occur. Depending on your risk status, a Pap smear shoudl be obtained and evaluated every 1-3 years. END OF REPORT * ML=Testing performed at Main Lab DEPARTMENT OF PATHOLOGY, [address] [place] [address] Manjit Cabral M.D. Director [facility] # [id number] RESULT: Ectocervical/Endocervical 31 The following Other High Risk HPV types were not detected: 31, 33, 35, 39, 45, 51, 52, 56, 58, 59, 66, and 68 Test Performed by: [place] [address] Dairy Equipment Installer: Kamari Soares III, M.D. 32 Test Performed by: [place] [address] Dairy Equipment Installer: Kamari Soares III, M.D. 33 FASTING 34 Desirable <150 Borderline high 150-199 High 200-499 Very High >500 35 Desirable <200 Borderline high 200-239 High >239 36 Low <40 Desirable: 40-60 High: >60 37 Desirable <100 Near Optimal 100-129 Borderline high 130-159 High 160-189 Very High >189 38 FASTING 39 Normal Range 180 to 914 Indeterminate Range 145 to 180 Deficient Range <145 40 Therapeutic target for the treatment of diabetes Mellitus patients is <7% HBA1C, and in selective patients <6.0%.Please refer to [place] [employer] Diabetic care guidelines for further information. 41 Because ethnic data is not always readily available, this report includes an eGFR for both -Americans and non- Americans. The National Kidney Disease Education Program (NKDEP) does not endorse the use of the MDRD equation for patients that are not between the ages of 18 and 70, are , have extremes of body size, muscle mass, or nutritional status, or are non- or non-. According to the National Kidney Foundation, irrespective of diagnosis, the stage of the disease is based on the level of kidney function: Stage Description GFR(mL/min/1.73 m(2)) 1 Kidney damage with normal or decreased GFR 90 2 Kidney damage with mild decrease in GFR 60-89 3 Moderate decrease in GFR 30-59 4 Severe decrease in GFR 15-29 5 Kidney failure <15 (or dialysis) 42 HDL Interpretation: Undesirable: High Risk: Less than 40 mg/dL Desirable: Low Risk: Greater than 60 mg/dL 43 LDL Interpretation: Low Risk Optimal Level: LDL Less than 100 mg/dL Near or Above Optimal: LDL 100-129 mg/dL Borderline High Risk: LDL 130-159 mg/dL High Risk: LDL 160-189 mg/dL Very High Risk: LDL Greater than 189 mg/dL 44 Therapeutic target for the treatment of diabetes Mellitus patients is <7% HBA1C, and in selective patients <6.0%.Please refer to [place] [employer] Diabetic care guidelines for further information. 45 -- REFERENCE VALUE -- 25-HYDROXY D TOTAL (D2+D3) Optimum levels in the normal population are 25-80 Test Performed by: [place] [address] Dairy Equipment Installer: Kamari Soares III, M.D. 46 Test Performed by: [place] [address] Dairy Equipment Installer: Kamari Soares III, M.D. 47 HDL Interpretation: Undesirable: High Risk: Less than 40 MG/DL Desirable: Low Risk: Greater than 60 MG/DL 48 LDL Interpretation: Low Risk Optimal Level: LDL Less than 100 MG/DL Near or Above Optimal: LDL 100-129 MG/DL Borderline High Risk: LDL 130-159 MG/DL High Risk: LDL 160-189 MG/DL Very High Risk: LDL Greater than 189 MG/DL 49 HDL Interpretation: Undesirable: High Risk: Less than 40 MG/DL Desirable: Low Risk: Greater than 60 MG/DL 50 LDL Interpretation: Low Risk Optimal Level: LDL Less than 100 MG/DL Near or Above Optimal: LDL 100-129 MG/DL Borderline High Risk: LDL 130-159 MG/DL High Risk: LDL 160-189 MG/DL Very High Risk: LDL Greater than 189 MG/DL 51 A metabolite of Naproxen, O-desmethylnaproxen, has been shown to interfere with the Alistair- method for measuring total bilirubin. Samples from patients who have taken Naproxen have shown spurious elevation in total bilirubin levels. 52 FASTING 53 A metabolite of Naproxen, O-desmethylnaproxen, has been shown to interfere with the [place]air-[place] method for measuring total bilirubin. Samples from patients who have taken Naproxen have shown spurious elevation in total bilirubin levels. 54 Please note updated reference range, effective 01/03/10 55 CHOLESTEROL INTERPRETATION: Desirable: Less than 200 MG/DL Borderline-High Risk: 200-239 MG/DL High-Risk: 240 MG/DL and over 56 HDL INTERPRETATION: Undesirable: High Risk: Less than 40 MG/DL Desirable: Low Risk: Greater than 60 MG/DL 57 LDL INTERPRETATION: Low Risk Optimal Level: LDL Less than 100 MG/DL Near or Above Optimal: LDL 100-129 MG/DL Borderline High Risk: LDL 130-159 MG/DL High Risk: LDL 160-189 MG/DL Very High Risk: LDL Greater than 189 MG/DL 58 ---- RUN DATE: 02/03/12 [facility] NMI LIVE PAGE 1 RUN TIME: 1308 Specimen Inquiry RUN USER: INTERFACE -- Name: AMADA BARNES Favian Status: REG REF Re02/02/12 Age/Sex: 56/F Unit#: [id number] Location: [facility] : [birth year] -- Specimen: [id number] SHAYLA Spec Date:02/02/12 Dr: Gulshan burks MD Spec Type: SURGICAL P Received:02/02/12-1247 Copies to: Sanam Leo MD SPECIMEN BIOPSY RECTAL POLYP HISTORY POST-OP DIAGNOSIS: One rectal polyp biopsied CLINICAL INFORMATION: Personal history of polyps; screening GROSS DESCRIPTION The specimen is received in formalin labelled Amada Barnes, Biopsy Rectal Polyp, and consists of a caban, soft tissue fragment measuring 0.4 x 0.2 x 0.1 cm. Submitted entirely, one cassette. DIAGNOSIS Colon, rectum, biopsy: Hyperplastic polyp. Signed Electronically by: MANJIT CABRAL MD 02/03/12 1303 -- -- DEPARTMENT OF PATHOLOGY, [address] [place] [address] [facility] Permit #[id number] Stephon Crawley M.D. Operational Intelligence Analyst Dir terrence -- 59 THERAPEUTIC TARGET FOR THE TREATMENT OF DIABETES MELLITUS PATIENTS IS <7% HBA1C, AND IN SELECTIVE PATIENTS <6.0%. PLEASE REFER TO [place] [employer] DIABETIC CARE GUIDELINES FOR FURTHER INFORMATION. 60 -- REFERENCE VALUE -- 25-HYDROXY D TOTAL (D2+D3) Optimum levels in the normal population are 25-80 Test Performed by: [place] [address] Dairy Equipment Installer: Kamari Soares III, M.D. 61 Test Performed by: [place] [address] Dairy Equipment Installer: Kamari Soares III, M.D. 62 CHOLESTEROL INTERPRETATION: Desirable: Less than 200 MG/DL Borderline-High Risk: 200-239 MG/DL High-Risk: 240 MG/DL and over 63 HDL INTERPRETATION: Undesirable: High Risk: Less than 40 MG/DL Desirable: Low Risk: Greater than 60 MG/DL 64 LDL INTERPRETATION: Low Risk Optimal Level: LDL Less than 100 MG/DL Near or Above Optimal: LDL 100-129 MG/DL Borderline High Risk: LDL 130-159 MG/DL High Risk: LDL 160-189 MG/DL Very High Risk: LDL Greater than 189 MG/DL 65 Anion gap measurement may be of limited value in the presence of any alkalosis, especially in a combined acid base disorder. . 66 A metabolite of Naproxen, O-desmethylnaproxen, has been shown to interfere with the Jenalessandraik-Romario method for measuring total bilirubin. Samples from patients who have taken Naproxen have shown spurious elevation in total bilirubin levels. 67 Because ethnic data is not always readily available, this report includes an eGFR for both -Americans and non- Americans. The National Kidney Disease Education Program (NKDEP) does not endorse the use of the MDRD equation for patients that are not between the ages of 18 and 70, are , have extremes of body size, muscle mass, or nutritional status, or are non- or non-. According to the National Kidney Foundation, irrespective of diagnosis, the stage of the disease is based on the level of kidney function: Stage Description GFR(mL/min/1.73 m(2)) 1 Kidney damage with normal or decreased GFR 90 2 Kidney damage with mild decrease in GFR 60-89 3 Moderate decrease in GFR 30-59 4 Severe decrease in GFR 15-29 5 Kidney failure <15 (or dialysis) 68 ---- RUN DATE: 12/30/11 [facility] NMI LIVE PAGE 1 RUN TIME: 140 Specimen Inquiry RUN USER: INTERFACE -- Name: AMADA BARNES Status: REG REF Re12/29/11 Age/Sex: 56/F Unit#: [id number] Location: [facility] : 57 -- Specimen: [id number] SOUT Spec Date:12/29/[address]: Leigh Vasquez [facility] Spec Type: CYTOLOGY Received:12/30/11-0818 Copies to: SOURCE ECTOCERVICAL/ENDOCERVICAL Thin Prep with Reflex HPV Test PATIENT INFORMATION ACTUAL COLLECTION DATE: 12/29/11 ? No POST MENOPAUSAL? No HYSTERECTOMY? No PREVIOUS ABNORMAL PAP SMEARS No PATIENT HISTORY: Last menstrual period at age 51 ADEQUACY OF SPECIMEN Satisfactory for evaluation * Transformation zone component identified * DIAGNOSIS NEGATIVE FOR INTRAEPITHELIAL LESION OR MALIGNANCY * This Pap test was evaluated with the assistance of the RegisterPatientPrep Pap Test Imaging System. The Pap Smear is a screening test designed to aid in the detection of premalign ant and malignant conditions of the uterine cervix. It is not a diagnostic procedure a nd should not be used as the sole means of detecting cervical cancer. Both false- positiv e and false-negative reports do occur. Depending on your risk status, a Pap smear cr uld be obtained and evaluated every one to three years. Initial evaluation performed by Jagruti REARDON(ASC) 12/30/11 Final Interpretation electronically signed by: Jagruti REARDON(ASC) 12/30/11 1405 -- -- DEPARTMENT OF PATHOLOGY, [address] [place] [address] [facility] Permit #[id number] Manjit Cabral M.D. Director Stephon Perez terrence -- 69 RUN DATE: 10/19/11 [facility] NMI LIVE PAGE 1 RUN TIME: 1015 Specimen Inquiry RUN USER: INTERFACE Name: AMADA BARNES Status: REG REF Re10/17/11 Age/Sex: 56/F Unit#: [id number] Location: [facility] : 57 SPEC #: [id number] JAMES: 10/17/11 STATUS: COMP REQ #: [id number] RECD: 10/17/[address]: Latrice العراقي NP SOURCE: THROAT ENTR: 10/17/[address]: KOJO: ORDERED: THROAT CULTURE QUERIES: MEDENT REQUISITION # [id number] ACT WKST: B 10/19/11 #2 Procedure Result Verified Site > THROAT CULTURE FULL Final 10/19/11- 1015 ML NORMAL THROAT MATTHEW FULL THROAT CULTURES ARE CLINICALLY INDICATED TO DETECT THE PRESENCE OF GROUP A STREP, ARCANOBACTERIUM AND YEAST. ML - [facility] Permit #[id number] [address] [place] [address] DEPARTMENT OF PATHOLOGY, [address] [place] [address] [facility] Permit #[id number] Manjit Cabral M.D. Director Naveen Oconnell M.D. Tool Room Lathe Operator 70 REVIEWED BY NAVEEN OCONNELL MD CBC and smear reviewed. Inverted PMN/lymph ratio noted. No blasts seen. 71 -- REFERENCE VALUE -- 25-HYDROXY D TOTAL (D2+D3) Optimum levels in the normal population are 25-80 Test Performed by: [facility] Dpt of Lab Med and Pathology [address] [place] [address] Dairy Equipment Installer: Kamari Soares III, M.D. 72 Anion gap measurement may be of limited value in the presence of any alkalosis, especially in a combined acid base disorder. . 73 A metabolite of Naproxen, O-desmethylnaproxen, has been shown to interfere with the Jendrassik-Romario method for measuring total bilirubin. Samples from patients who have taken Naproxen have shown spurious elevation in total bilirubin levels. 74 Because ethnic data is not always readily available, this report includes an eGFR for both -Americans and non- Americans. The National Kidney Disease Education Program (NKDEP) does not endorse the use of the MDRD equation for patients that are not between the ages of 18 and 70, are , have extremes of body size, muscle mass, or nutritional status, or are non- or non-. According to the [employer], irrespective of diagnosis, the stage of the disease is based on the level of kidney function: Stage Description GFR(mL/min/1.73 m(2)) 1 Kidney damage with normal or decreased GFR 90 2 Kidney damage with mild decrease in GFR 60-89 3 Moderate decrease in GFR 30-59 4 Severe decrease in GFR 15-29 5 Kidney failure <15 (or dialysis) 75 CHOLESTEROL INTERPRETATION: Desirable: Less than 200 MG/DL Borderline-High Risk: 200-239 MG/DL High-Risk: 240 MG/DL and over 76 HDL INTERPRETATION: Undesirable: High Risk: Less than 40 MG/DL Desirable: Low Risk: Greater than 60 MG/DL 77 LDL INTERPRETATION: Low Risk Optimal Level: LDL Less than 100 MG/DL Near or Above Optimal: LDL 100-129 MG/DL Borderline High Risk: LDL 130-159 MG/DL High Risk: LDL 160-189 MG/DL Very High Risk: LDL Greater than 189 MG/DL 78 ---- RUN DATE: 12/23/10 [facility] NMI LIVE PAGE 1 RUN TIME: 1314 Specimen Inquiry RUN USER: INTERFACE -- Name: AMADA BARNES Status: REG REF Re12/20/10 Age/Sex: 55/F Unit#: [id number] Location: [facility] : 57 -- Specimen: [id number] Spec Date: 12/20/[address]: Leigh palomo [facility] Spec Type: CYTOLOGY Received: 12/23/10 Copies to: SOURCE ECTOCERVICAL/ENDOCERVICAL Thin Prep with Reflex HPV Test PATIENT INFORMATION ACTUAL COLLECTION DATE: 12/20/10 ? No POST MENOPAUSAL? Yes HYSTERECTOMY? No PREVIOUS ABNORMAL PAP SMEARS No PATIENT HISTORY: Last menstrual period 3 yrs ago ADEQUACY OF SPECIMEN Satisfactory for evaluation * Transformation zone component cannot be definitely identified due to prese nce * of atrophy or other hormonal changes. * DIAGNOSIS NEGATIVE FOR INTRAEPITHELIAL LESION OR MALIGNANCY * This Pap test was evaluated with the assistance of the RegisterPatient[employer] Pap Test Imaging System. The Pap Smear is a screening test designed to aid in the detection of premalign ant and malignant conditions of the uterine cervix. It is not a diagnostic procedure a nd should not be used as the sole means of detecting cervical cancer. Both false- positiv e and false-negative reports do occur. Depending on your risk status, a Pap smear cr uld be obtained and evaluated every one to three years. Initial evaluation performed by Jagruti REARDON(ASC) 12/23/10 Final Interpretation electronically signed by: Jagruti REARDON(ASC) 12/23/10 1314 -- DEPARTMENT OF PATHOLOGY, [address] [place] [address] [facility] Permit #[id number] Manjit Cabral M.D. Director Naveen Oconnell M.D. Operational Intelligence Analyst Dir terrence -- Procedures Date CPT Code Description Status 12/03/2017 Inject/Drain Joint/Bursa Major W/O US Completed 02/11/2017 Diabetic Retinal Eye Exam Completed 02/09/2017 Mammogram Completed 01/20/201752138 Inject/Drain Joint/Bursa Major W/O US Completed 12/19/2016 Colonoscopy Completed 09/22/2016 72886 Tenodesis Biceps Long Tendon Completed 09/22/2016 39898 Tenodesis Biceps Long Tendon Completed 09/22/2016 78143 Arthroscopy Shoulder Debridement Extensive Completed 09/22/2016 13320 Arthroscopy Shoulder,W/Rotator Cuff Repair Completed 09/22/2016 59437 Arthroscopy Shoulder,W/Rotator Cuff Repair Completed 09/22/2016 83948 Arthroscopy,Shoulder Decompression Of Subacromial Space Completed W/Acromio 09/22/2016 71833 Arthroscopy Shoulder Debridement Extensive Completed 09/22/2016 96707 Arthroscopy,Shoulder,Distal Claviculectomy Incl Dist Completed Articular SR 09/22/2016 63727 Arthroscopy,Shoulder,Distal Claviculectomy Incl Dist Completed Articular SR 09/22/2016 22839 Arthroscopy,Shoulder Decompression Of Subacromial Space Completed W/Acromio 09/12/2016 08625 EKG Tracing & Interpretation Completed 01/21/2016 Diabetic Retinal Eye Exam Completed 03/06/2015 Mammogram Completed 04/11/2014 Diabetic Retinal Eye Exam Completed 02/23/2014 Mammogram Completed 02/23/2014 Bone Mineral Density Test Completed 12/15/2013 50332 Stress Test Completed 12/05/2013 26214 Holter Monitor Review (24 hr)dr review & interp only Completed 02/22/2013 Mammogram Completed 02/02/2012 Colonoscopy Completed 01/01/2012 Mammogram Completed 01/01/2012 Bone Mineral Density Test Completed 10/02/2011 11064 ECHO Transthorasic Realtime 2D W Doppler & Color Flow Completed Hosp 10/02/2011 29024 Pulse Wave/Continuous-Interp.RPT Completed 10/02/2011 05731 Color Flow Doppler/Interp & Reprt Completed 12/24/2010 Mammogram Completed 12/24/2009 43047 Rad Exam; Foot Comp Completed 12/05/2009 67982 Rad Exam; Foot Comp Completed 11/26/2009 08192 Rad Exam; Foot Comp Completed 11/26/2009 43891 Rad Exam; Foot Comp Completed 11/14/2009 26883 Rad Exam; Foot Limited Completed 10/24/2009 16418 FX Metatarsal Care Completed 08/13/2009 Bone Mineral Density Test Completed 08/13/2009 Mammogram Completed 02/07/2008 81523 EKG Tracing & Interpretation Completed 02/08/2007 Colonoscopy Completed 12/14/2006 29418 EKG Tracing & Interpretation Completed 12/14/2006 51380 EKG Tracing & Interpretation Completed Encounters Type Date Location Provider CPT E/M Dx Office Visit 10/15/2017 [facility] Leigh Vasquez, [place]. [address] Z00.00 10:00a Suni Decker Z12.31 E11.9 G43.909 F32.9 K21.9 E78.00 M79.672 Z11.51 Office Visit 03/26/2017 9:45a [facility] [place] [address] M75.21 C.M.A. M75.111 M25.611 Z47.89 Office Visit 03/12/2017 11:40a [facility] Leigh Vasquez [place]. [address] E11.9 - [place] Z23 Office Visit 02/19/2017 11:30a [facility] [place] [address] M75.111 C.M.A. M19.011 M75.21 Z47.89 Office Visit 01/20/2017 11:30a [facility] [place] [address] M75.111 C.M.A. M19.011 M75.21 Z47.89 Office Visit 09/17/2016 9:40a [facility] Leigh Vasquez, [place]. 21740 J02.0 - [place] Office Visit 09/16/2016 10:40a [facility] Leigh Vasquez, [place]. 39218 Z00.01 - [place] Z12.31 E11.9 E78.00 G43.909 F32.9 K21.9 M25.511 Office Visit 09/12/2016 11:20a [facility] Leigh Vasquez, N.[place]. 90572 Z01.818 - [place] S46.011D E11.9 E78.00 Office Visit 09/09/2016 9:15a [facility] [place] [address] S46.011D C.M.A. S46.101D M19.211 S46.111D Office Visit 08/26/2016 8:15a [facility] [place] [address] S46.011D C.M.A. S46.101D M19.211 Office Visit 06/11/2016 9:00a [facility] Leigh Vasquez 59736 J02.9 - [place] N.P. Office Visit 06/03/2016 2:30p [facility] [place] [address] S46.011D Of C.M.A. S46.101D M75.21 M54.2 Office Visit 04/22/2016 2:00p [facility] [place] [address] S46.011A C.M.A. S46.101A M75.21 M54.2 Office Visit 03/19/2016 11:40a [facility] Leigh Vasquez, [place]. 47631 M25.511 - [place] Z23 Office Visit 02/21/2016 8:40a [facility] Leigh Vasquez, N.[place]. 71548 E11.9 - [place] Office Visit 11/05/2015 10:00a [facility] Leigh Vasquez, N.[place]. 65635 E11.9 - [place] E78.0 E11.649 Office Visit 10/26/2015 11:00a [facility] Julissa Curry, 21870 R23.8 - Jeronimo Szymanski R22.2 Office Visit 03/19/2015 9:40a [facility] Leigh Vasquez, N[place]. 49424 G43.909 - [place] Z23 E11.9 Office Visit 01/16/2015 9:20a [facility] Leigh Vasquez, N.[place]. 80281 V70.0 - [place] V76.10 272.4 250.00 346.90 311 530.81 470 v03.82 Office Visit 10/19/2014 10:00a [facility] Leigh Vaqsuez, N.P. 35256 250.00 - [place] Office Visit 03/07/2014 9:40a [facility] Leigh Vasquez N.P. 19240 250.00 - [place] V04.81 Office Visit 01/13/2014 9:00a [facility] Leigh Vasquez N.P. 33063 V70.0 - [place] V72.31 V76.10 272.4 530.81 733.90 311 346.90 250.00 Office Visit 12/05/2013 4:00p [facility] Leigh Vasquez, N.P. 62537 780.2 - [place] Office Visit 11/11/2013 4:20p [facility] Leigh Vasquez, N.P. 43105 780.2 - [place] 780.79 Office Visit 02/01/2013 1:20p [facility] Leigh Vasquez, N.P. 69377 790.21 - [place] Office Visit 01/12/2013 9:00a [facility] Leigh Vasquez, N.P. 49073 V70.0 - [place] V72.31 V76.10 272.4 790.21 530.81 733.90 311 346.90 724.5 Office Visit 08/03/2012 11:00a [facility] Mary Jorge M.D. 13644 845.19 - [place] Office Visit 07/30/2012 11:00a [facility] Mary Jorge M.D. 51142 845.19 - [place] Office Visit 06/29/2012 3:40p [facility] Leigh Vasquez, N.P. 79905 346.90 - [place] 272.4 723.1 Office Visit 05/17/2012 3:40p [facility] Leigh Vasquez, N.[place]. 97956 790.21 - [place] 272.4 Office Visit 04/12/2012 4:00p [facility] Rhianna Ingram M.D. 44068 786.2 - [place] Office Visit 01/07/2012 9:40a [facility] Leigh Vasquez, N.[place]. 02651 272.4 - [place] 790.21 Office Visit 12/29/2011 1:00p [facility] Leigh Vasquez, N[place]. 82051 V70.0 - [place] V72.31 V76.10 272.4 790.21 733.90 V12.72 477.9 110.1 V04.89 Office Visit 10/21/2011 11:20a [facility] Leigh Vasquez, N.P. 28352 780.33 - [place] Office Visit 10/17/2011 12:45p [facility] Latrice العراقي, N.P. 72807 462 - [place] 528.00 345.80 Office Visit 01/20/2011 11:00a DO Not Use [employer] Leigh Varn, 96810 466.0 N.P. 910.5 Office Visit 12/20/2010 1:40p DO Not Use [employer] Leigh Brownn, 54785 V70.0 N.P. V72.31 272.4 790.21 733.90 792.1 Office Visit 04/29/2010 9:30a DO Not Use Leigh Varn, 26689 346.90 [employer] N.P. Office Visit 04/25/2010 9:15a DO Not Use Leigh Varn, 14886 784.0 [employer] N.P. 386.11 Office Visit 01/18/2010 10:00a DO Not Use Leigh Varn, 70081 272.4 [employer] N.P. Office Visit 10/15/2009 3:45p DO Not Use Leigh Vasquez, 19169 790.21 [employer] N.P. 272.4 Office Visit 09/10/2009 3:45p DO Not Use Leigh Vasquez, 70958 346.90 [employer] N.P. 733.90 300.00 Office Visit 08/06/2009 1:45p DO Not Use Leigh Vasquez, 07089 V72.31 [employer] N.P. 272.4 300.00 V04.81 Office Visit 07/16/2009 12:00p DO Not Use [employer] Sanam Leo, 24617 558.9 M.D., FACP 300.00 Office Visit 05/04/2009 4:00p DO Not Use Kaleigh Zamudio, 91951 530.81 [employer] M.D. Office Visit 03/21/2009 3:15p DO Not Use Sanam Leo M.D., 91269 477.9 [employer] FACP 530.81 Office Visit 03/06/2009 11:15a DO Not Use [employer] Sanam Leo, 43403 530.81 M.D., FACP 719.40 V04.81 Office Visit 10/16/2008 3:45p DO Not Use [employer] Sanam Leo, 88749 300.00 M.D., FACP Office Visit 09/12/2008 2:45p DO Not Use [employer] Sanam Leo, 83605 272.4 M.D., FACP 300.00 Office Visit 06/05/2008 10:00a DO Not Use [employer] Sanam Leo, 60452 789.07 M.D., FACP Office Visit 03/09/2008 4:00p DO Not Use [employer] Sanam Leo, 04126 277.7 M.D., FACP 272.4 Office Visit 02/25/2008 2:00p DO Not Use Leigh Vasquez, 01408 709.2 [employer] N.P. Office Visit 02/07/2008 11:30a DO Not Use Sanam Leo M.D., 68751 V72.31 [facility] 401.1 780.79 Office Visit 12/14/2006 9:45a DO Not Use Kaleigh Zamudio, 02967 V70.0 [facility] Future Appointment(s):01/05/2018 9:45 am - Sarai Kapoor MD at [facility]04/08/2018 9:40 am - Leigh Vasquez N.P. at [facility] - Pnnkpfobf88/25/2018 - DINA Carranza-CM47.812 Spondylosis w/o myelopathy or radiculopathy, cervical regionNew Xrays:MRI Cervical Spine WoFollow up:After MRI
--- OUTSIDE RECORDS SUMMARY | 2017-12-25 19:56 | XMS REPORT ---
:1955 External Reference #:[id number] Author Organization [facility] Address [address] [place] [address] [place] [address] Phone [phone] Care Team Providers Name Role Phone Julissa Curry MD Primary Care Physician Unavailable Payers Type Date Identification Numbers Payment Provider Subscriber Commercial Effective: Policy Number: BS Silvano Barnes 2012 [id number] PayID: [id number] [address] [address] [place] [address] Workers Compensation Onset: 2009 Policy Number: TST SCHS Amada Barnes [id number] Plan PayID: [id number] [address] [place] [address] Medigap Part B Effective: 2009 Policy Number: BS Of TOMMY Barnes [id number] Expires: 2011 PayID: [id number] [address] [address] [place] [id number] Advance Directives Type Date Description Status Comment [...] Comments 08/01/2009 Demerol GI UPSET active Moderate Medications Medication Date Status Form Strength Qnty SIG Indications Ordering Provider Metaxalone 11/26 Hx Tablets 800mg 30tab take 1 .9 s tablet at Varn, N.P. - bedtime [...] Active Tablets 500/ 400 1 po bid Unknown Fish Oil Active Capsules 1200mg 1 po qd Unknown Burp- Imitrex Active Tablets 50mg 42tab take 1 s tablet by Varn, N.P. mouth at onset of headache, may repeat one time after 2 hours if needed Oxycodone-Acet 09/22 Hx Tablets 5-325mg 40tab 1 tabs by Sarai amino s mouth every MD Antwon - 6 hours as 11/24 needed for pain Cephalexin 09/22 Hx Tablets 500mg 20tab take 1 by keli s mouth four MD Antwon - times a day 06/06 x 5 Amoxicillin 09/17 Hx Capsules 500mg 30cap one by mouth J02.0 Leigh /2017 s 3 times a Varn, N.P. - day x 10 Lidocaine 09/17 Hx Solution 2% 100ml swish and J02.0 gargle every Varn, N.P. - 3- 4 hours 10/01 as needed Vicodin 09/16 Hx Tablets 5-300mg 20tab take 1 by M25.511 s mouth every Varn, N.P. - 6 hours as 01/20 needed Augmentin 06/11 Hx Tablets 875-125mg 20tab one by mouth J02.0 Leigh /2016 s every 12 Varn, N.P. - hours for 06/21 ten Metaxalone 03/19 Hx Tablets 800mg 30tab take [...] 8% 6.6ml apply to 110.1 Leigh Nail Lacque entire nail Varn, N.P. - and 08/03 skin until clear Lyrica 12/28 Hx Capsules 50mg 120ca 2 capsules ps bid Varn, N.P. - 05/17 Azithromycin 10/16 Hx Tablets 250mg 6tabs 2 tabs po qd 462 x1 day, 1 Lolita Simpson, - tab po qd x M.D.,FACP 12/28 4 Acyclovir 10/16 Hx Capsules 200mg 25cap 1 cap 5 528.00 s times daily Lolita Simpson, - x 5 days M.D.,FACP 12/28 1 01/20 Hx Tablets 250mg 6tabs two tabs day 466.0 one, one Cotton, - daily till M.D. [...] Hx Tablets 5-500mg 30tab 1-2 by mouth Sanam s every 4-6 Felipa, - hours and M.D., FACP 12/20 needed for pain Inderal LA 04/25 Hx Caps ER 120mg One PO Daily Sanam 24HR Felipa, - M.D., FACP 09/12 Topamax 04/25 Hx Tablets 25mg 60tab 1 tablet s twice a day Felipa, - M.D., FACP 04/29 Lovaza 04/25 Hx Capsules 1gm 60cap Take One Sanam s Capsule By Felipa, - Mouth Twice M.D., FACP 06/29 A Day /2012 Citalopram 04/25 Hx Tablets 40mg 90tab take one Leigh Hydrobromide s tablet by Christina, N.P. - mouth once 06/23 daily /2014 Lyrica 01/11 Hx Capsules 150mg 60cap 1 capsule Leigh s twice a day Varn, N.P. - 12/28 Cetirizine HCL Hx Tablets 10mg 30tab 1 po qd Unknown /0000 s - 03/06 Cetirizine HCL 00 Hx Tablets 10mg 30tab 1 po qd Unknown /0000 s - 01/13 Medications Administered in Office Medication Date Status Form Strength Qnty SIG Indications Ordering Provider Triamcinolone Injection Zaneb (Kenalog) 2016 MD Antwon Immunizations CPT Code Status Date Vaccine Reaction Lot # [id number] Given 03/12/2017 Influenza Virus Vaccine, No immediate [id number] Quadrivalent, Split, reaction..jh Preservative Free 50894 Given 03/19/2016 Influenza Virus Vaccine, no reaction noted ... [id number] Quadrivalent, Split Virus, [place] Use 30852 Given 03/19/2015 Influenza Virus Vaccine, [id number] Quadrivalent, Split, Preservative Free 17590 Given 01/16/2015 Pneumonia Vaccine [id number] 69204 Given 03/07/2014 Influenza Virus Vaccine, [id number] Quadrivalent, Split, Preservative Free 95701 Given 12/29/2011 Zoster (Zostavax) [id number] 52558 Given 04/03/2011 Tdap - [id number] Tetanus/Diptheria/Acellular Pertussis 96011 Given 08/06/2009 Influenza Virus Vaccine, Pandemic Formulation 22775 Given 08/06/2009 Administration Swine Flu Shot 27645 Given 03/06/2009 Influenza Virus 3Yrs & Over Vital Signs Date Vital Result Comment 12/03/2017 Height 65 inches 5'5" Weight 153.00 [...] A1c 5.5 % Less than 6.0 40 Vitamin D 1,25 And 01/13/2013 Vitamin D 1,25-Dihydroxy 51 pg/mL 18-78 41 Vitamin D,2 Comp Metabolic Panel 01/13/2013 Sodium 134 mmol/L [...] Egfr Non- 86.6 >60 Egfr 111.3 >60 42 Lipid Profile (Trig/Chol/HDL) 01/13/2013 Triglycerides 141 mg/dL 40-200 Cholesterol 152 mg/dL Less than 200 HDL Cholesterol 41 mg/dL 40-60 43 Cholesterol/HDL Ratio 3.7 Average 1-4.44 LDL Cholesterol 82.8 Less Than 100 44 Laboratory test 01/13/2013 Hemoglobin A1c 5.9 % Less than 6.0 45 finding Vitamin D, 25 Hydroxy 01/13/2013 25-Hydroxy Vitamin D2 <4.0 ng/mL 25-Hydroxy Vitamin D3 30 ng/mL 25-Hydroxy Vitamin D Total 30 ng/mL 46 Laboratory test finding 06/26/2012 Glucose 119 mg/dL High 70-100 Lipid Profile (Trig/Chol/HDL) 06/26/2012 Triglycerides 67 mg/dL 40-200 Cholesterol 145 mg/dL Less than 200 HDL [...] in selective patients <6.0%. Please refer to [place] [employer] diabetic care guidelines for further [...] 5 Kidney failure <15 (or dialysis) 4 [id number] 5 SEE RESULT BELOW Name: AMADA BARNES : [address]: Leigh Vasquez NP Acct: [id number] Unit: [id number] AGE: 62 Location: [facility] Re10/15/17 SEX: F Status: REG REF SPEC: [id number] JAMES: 10/15/17-[address] [facility] DR: Leigh Vasquez NP REQ: [id number] RECD: 10/16/17 STATUS: SOUT _ ORDERED: TP IMAGE ANALYS, HPV/Thin Prep, HPV 16/18 GENE COMMENTS: [id number] Negative for Intraepithelial lesion or Malignancy A. [...] was evaluated with the assistance of the inthinc Test Imaging System. Due to cytologic findings at the sales leader microscope, comprehensive manual rescreening by a Attorney At Law may be required. The Pap Smear is [...] years. END OF REPORT DEPARTMENT OF PATHOLOGY, [address] [place] [address] Manjit Cabral M.D. Director [facility] # [id number] 6 Desirable <150 Borderline high 150-199 High [...] 5 Kidney failure <15 (or dialysis) 11 [id number] 12 SEE RESULT BELOW Name: AMADA BARNES : [address]: Gulshan Villafuerte MD Acct: [id number] Unit: [id number] AGE: 61 Location: [facility] Re12/19/16 SEX: F Status: DEP REF SPEC: [id number] JAMES: 12/19/16- SUBM DR: Gulshan Villafuerte MD REQ: [id number] RECD: 12/19/16-1216 STATUS: SHAYLA GEIGER DR: Julissa Curry MD _ ORDERED: LEVEL 4/4 COMMENTS: [id number] FINAL DIAGNOSIS 1. Colon, 45 cm, biopsy: [...] performed at Main Lab DEPARTMENT OF PATHOLOGY, [address] [place] [address] Manjit Cabral M.D. Director [facility] # [id number] RUN DATE: 12/22/16 [facility] LAB LIVE PAGE 2 Patient: AMADA BARNES [id number] (Continued) GROSS DESCRIPTION (Continued) GROSS DESCRIPTION (Continued) [...] performed at Main Lab DEPARTMENT OF PATHOLOGY, [address] [place] [address] Manjit Cabral M.D. Director [facility] # [id number] 13 Registered Dental Assistant Rda: [id number] 14 Desirable <150 Borderline high 150-199 High [...] and in selective patients <6.0%.Please refer to [place] [employer] Diabetic care guidelines for further information. 20 Therapeutic target for the treatment of diabetes Mellitus patients is <7% HBA1C, and in selective patients <6.0%.Please refer to [place] [employer] Diabetic care guidelines for further [...] PT IS FASTING 29 RUN DATE: 01/16/14 [facility] LAB LIVE PAGE 1 RUN TIME: [address] [place], [place] [address] Specimen Inquiry Name: AMADA BARNES : [address]: Leigh Vasquez PUBLIC HEALTH ANALYST Acct: [id number] Unit: [id number] AGE: 58 Location: [facility] Re01/13/14 SEX: F Status: REG REF SPEC: [id number] JAMES: 01/13/14-145 [facility] [address]: Leigh Vasquez NP REQ: [id number] RECD: 01/13/14 STATUS: SOUT _ ORDERED: IMAGE ANALYSIS, HPV/Thin Prep FINAL DIAGNOSIS Negative for Intraepithelial lesion or Malignancy COMMENTS: Specimen sent to [facility] [employer] in [place], [place] on 01/16/14 by [id number] at 1425. Results will be reported separately. A. Ectocervical/Endocervical Specimen Adequacy: Satisfactory of evaluation Transformation zone component identified Predominance of white blood cells Patient Information: HPV: High risk HPV DNA testing regardless of pap results. Actual Specimen Date: 01/13/14 LMP If Unknown: unknown ?: N Post Menopausal?: Y Hysterectomy?: N Previous Abnormal Pap Smears?:N Signed (signature on file) ILSA Pedraza (ASCP) 01/16 4344 This Pap test was evaluated with the assistance of the ThinPrep Test Imaging System. Due to cytologic findings at the sales leader microscope, comprehensive manual rescreening by a Attorney At Law may be required. The Pap Smear is [...] performed at Main Lab DEPARTMENT OF PATHOLOGY, [address] [place] [address] Manjit Cabral M.D. Director [facility] # [id number] 30 RESULT: Ectocervical/Endocervical 31 The following Other High Risk HPV types were not detected: 31, 33, 35, 39, 45, 51, 52, 56, 58, 59, 66, and 68 Test Performed by: [place] [address] [facility] Pric[facility] Consultant: Kamari Soares III, M.D. 32 Test Performed by: [place] [address] [facility] Consultant: Kamari Soares III, M.D. 33 FASTING 34 [...] and in selective patients <6.0%.Please refer to [place] [employer] Diabetic care guidelines for further information. 41 Test Performed by: [place] [address] [facility] Pric[facility] Consultant: Kamari Soares III, M.D. 42 Because ethnic data is not always readily [...] 15-29 5 Kidney failure <15 (or dialysis) 43 HDL Interpretation: Undesirable: High Risk: Less than 40 mg/dL Desirable: Low Risk: Greater than 60 mg/dL 44 LDL Interpretation: Low Risk Optimal Level: LDL Less than 100 mg/dL Near or Above Optimal: LDL 100-129 mg/dL Borderline High Risk: LDL 130-159 mg/dL High Risk: LDL 160-189 mg/dL Very High Risk: LDL Greater than 189 mg/dL 45 Therapeutic target for the treatment of diabetes Mellitus patients is <7% HBA1C, and in selective patients <6.0%.Please refer to [place] [employer] Diabetic care guidelines for further information. 46 -- REFERENCE VALUE -- 25-HYDROXY D TOTAL (D2+D3) Optimum levels in the normal population are 25-80 Test Performed by: [address] [address] [facility] Pric[employer] Consultant: Kamari Soares III, M.D. 47 HDL Interpretation: [...] has been shown to interfere with the Jendrassik-Nixburg method for measuring total bilirubin. Samples from patients who have taken Naproxen have shown spurious elevation in total bilirubin levels. 52 FASTING 53 A metabolite of Naproxen, O-desmethylnaproxen, has been shown to interfere with the Jendrassik-Nixburg method for measuring total bilirubin. Samples from [...] 189 MG/DL 58 ---- RUN DATE: 02/03/12 [facility] NMI LIVE PAGE 1 RUN TIME: 1308 Specimen Inquiry RUN USER: INTERFACE -- Name: CAMERONPRATEEKY Favian Status: REG REF Re02/02/12 Age/Sex: 56/F Unit#: [id number] Location: [facility] : [birth year] -- Specimen: [id number] SOUT Spec Date:02/02/12- Subm Dr: Gulshan burks MD Spec Type: SURGICAL P Received:02/02/12-1247 Copies to: Sanam Leo MD SPECIMEN BIOPSY RECTAL POLYP HISTORY POST-OP DIAGNOSIS: One rectal polyp biopsied CLINICAL INFORMATION: Personal history of polyps; screening GROSS DESCRIPTION The specimen is received in formalin labelled Amada Corrales Cameron, Biopsy Rectal Polyp, and consists of a caban, soft tissue fragment measuring 0.4 x 0.2 x 0.1 cm. Submitted entirely, one cassette. DIAGNOSIS Colon, rectum, biopsy: Hyperplastic polyp. Signed Electronically by: MANJIT CABRAL MD 02/03/12 1303 -- -- DEPARTMENT OF PATHOLOGY, [address] [place] [address] [facility] Permit #[id number] Manjit Cabral M.D. Director Naveen Oconnell M.D. [place] Measurer Dir terrence -- 59 THERAPEUTIC TARGET FOR THE TREATMENT OF DIABETES MELLITUS PATIENTS IS <7% HBA1C, AND IN SELECTIVE PATIENTS <6.0%. PLEASE REFER TO [place] [employer] DIABETIC CARE GUIDELINES FOR FURTHER INFORMATION. 60 -- REFERENCE VALUE -- 25-HYDROXY D TOTAL (D2+D3) Optimum levels in the normal population are 25-80 Test Performed by: [address] [address] [facility] Pricing Consultant: Kamari Soares III, M.D. 61 Test Performed by: [address] [address] [facility] Pricing Consultant: Kamari Soares III, M.D. 62 CHOLESTEROL INTERPRETATION: [...] (or dialysis) 68 ---- RUN DATE: 12/30/11 [facility] NMI LIVE PAGE 1 RUN TIME: 1409 Specimen Inquiry RUN USER: INTERFACE -- Name: AMADA BARNES Status: REG REF Re12/29/11 Age/Sex: 56/F Unit#: [id number] Location: [facility] : 57 -- Specimen: [id number] SOUT Spec Date:12/29/[address]: Leigh ERNSTP Spec Type: CYTOLOGY Received:12/30/11 Copies to: SOURCE ECTOCERVICAL/ENDOCERVICAL Thin Prep with [...] was evaluated with the assistance of the Aggregate KnowledgePrep Pap Test Imaging System. The Pap Smear [...] three years. Initial evaluation performed by Jagruti REARDON([facility]) 12/30/11 Final Interpretation electronically signed by: Jagruti REARDON([facility]) 12/30/11 1405 -- -- DEPARTMENT OF PATHOLOGY, [address] [place] [address] [facility] Permit #[id number] Manjit Cabral M.D. Director Naveen Oconnell M.D. [place] Measurer Dir terrence -- 69 RUN DATE: 10/19/11 [facility] NMI LIVE PAGE 1 RUN TIME: 1015 Specimen Inquiry RUN USER: INTERFACE Name: AMADA BARNES Status: REG REF Re10/17/11 Age/Sex: 56/F Unit#: [id number] Location: [facility]. : 57 SPEC #: [id number] JAMES: 10/17/113 STATUS: CARYN REQ #: [id number] RECD: 10/17/[address]: Dulce Maria FONTANA,Latrice Manzo SOURCE: THROAT ENTR: 10/17/11 FELY LANIER: SPDESC: ORDERED: THROAT CULTURE QUERIES: MEDENT REQUISITION # [id number] ACT WKST: B 10/19/11 #2 Procedure Result Verified Site > THROAT CULTURE FULL Final 10/19/11- 1015 ML NORMAL THROAT MATTHEW FULL THROAT CULTURES ARE CLINICALLY INDICATED TO DETECT THE PRESENCE OF GROUP A STREP, ARCANOBACTERIUM AND YEAST. - [facility] Permit #[id number] [facility] icomply [facility] [address] DEPARTMENT OF PATHOLOGY, [facility] [employer] [place], [place] [address] [facility] Permit #[id number] Manjit Cabral M.D. Director Naveen Oconnell M.D. [employer] 70 REVIEWED BY NAVEEN OCONNELL MD CBC and smear reviewed. Inverted PMN/lymph ratio noted. No blasts seen. 71 -- REFERENCE VALUE -- 25-HYDROXY D TOTAL (D2+D3) Optimum levels in the normal population are 25-80 Test Performed by: [facility] Dpt of Lab Med and Pathology [address] [place] [address] [facility] Pric[facility] Consultant: Kamari Soares III, M.D. 72 Anion gap [...] 189 MG/DL 78 ---- RUN DATE: 12/23/10 [facility] NMI LIVE PAGE 1 RUN TIME: 1314 Specimen Inquiry RUN USER: INTERFACE -- Name: AMADA BARNES Favian Status: REG REF Re12/20/10 Age/Sex: 55/F Unit#: [id number] Location: [facility] : 57 -- Specimen: [id number] SOUT Spec Date: 12/20/[address]: Leigh palomo MINING TEACHER Spec Type: CYTOLOGY Received: 12/23/1009 Copies to: SOURCE ECTOCERVICAL/ENDOCERVICAL Thin Prep with [...] was evaluated with the assistance of the Aggregate KnowledgePrep Pap Test Imaging System. The Pap Smear [...] three years. Initial evaluation performed by Jagruti REARDON([facility]) 12/23/10 Final Interpretation electronically signed by: Jagruti REARDON([facility]) 12/23/10 1314 -- DEPARTMENT OF PATHOLOGY, [address] [place] [address] [facility] Permit #[id number] Manjit Cabral M.D. Director Naveen Oconnell M.D. [place] Measurer Dir terrence -- Procedures Date CPT Code Description Status 12/03/2017 Inject/Drain Joint/Bursa Major W/O US Completed 02/11/2017 Diabetic Retinal Eye Exam Completed 02/09/2017 Mammogram Completed 01/20/201784111 Inject/Drain Joint/Bursa Major W/O US Completed 12/19/2016 Colonoscopy Completed 09/22/2016 03590 Tenodesis Biceps Long Tendon Completed 09/22/2016 63309 Tenodesis Biceps Long Tendon Completed 09/22/2016 05931 Arthroscopy Shoulder Debridement Extensive Completed 09/22/2016 28451 Arthroscopy Shoulder,W/Rotator Cuff Repair Completed 09/22/2016 06469 Arthroscopy Shoulder,W/Rotator Cuff Repair Completed 09/22/2016 45439 Arthroscopy,Shoulder Decompression Of Subacromial Space Completed W/Acromio 09/22/2016 55762 Arthroscopy Shoulder Debridement Extensive Completed 09/22/2016 16536 Arthroscopy,Shoulder,Distal Claviculectomy Incl Dist Completed Articular SR 09/22/2016 57260 Arthroscopy,Shoulder,Distal Claviculectomy Incl Dist Completed Articular SR 09/22/2016 69551 Arthroscopy,Shoulder Decompression Of Subacromial Space Completed W/Acromio 09/12/2016 04108 EKG Tracing & Interpretation Completed 01/21/2016 Diabetic Retinal Eye Exam Completed 03/06/2015 Mammogram Completed 04/11/2014 Diabetic Retinal Eye Exam Completed 02/23/2014 Mammogram Completed 02/23/2014 Bone Mineral Density Test Completed 12/15/2013 44990 Stress Test Completed 12/05/2013 96563 Holter Monitor Review (24 hr)dr review & interp only Completed 02/22/2013 Mammogram Completed 02/02/2012 Colonoscopy Completed 01/01/2012 Mammogram Completed 01/01/2012 Bone Mineral Density Test Completed 10/02/2011 61172 ECHO Transthorasic Realtime 2D W Doppler & Color Flow Completed Hosp 10/02/2011 05083 Pulse Wave/Continuous-Interp.RPT Completed 10/02/2011 18904 Color Flow Doppler/Interp & Reprt Completed 12/24/2010 Mammogram Completed 12/24/2009 34452 Rad Exam; Foot Comp Completed 12/05/2009 47990 Rad Exam; Foot Comp Completed 11/26/2009 91204 Rad Exam; Foot Comp Completed 11/26/2009 80975 Rad Exam; Foot Comp Completed 11/14/2009 24616 Rad Exam; Foot Limited Completed 10/24/2009 30679 FX Metatarsal Care Completed 08/13/2009 Bone Mineral Density Test Completed 08/13/2009 Mammogram Completed 02/07/2008 62361 EKG Tracing & Interpretation Completed 02/08/2007 Colonoscopy Completed 12/14/2006 34934 EKG Tracing & Interpretation Completed 12/14/2006 71704 EKG Tracing & Interpretation Completed Encounters Type Date Location Provider CPT E/M Dx Office Visit 12/03/2017 9:15a [facility] [place] [address] M75.41 C.M.A. M54.12 Office Visit 10/15/2017 10:00a [facility] Leigh Vasquez, N.P. 36605 Z00.00 - [place] Z12.31 E11.9 G43.909 F32.9 K21.9 E78.00 M79.672 Z11.51 Office Visit 03/26/2017 9:45a [facility] [place] [address] M75.21 C.M.A. M75.111 M25.611 Z47.89 Office Visit 03/12/2017 11:40a [facility] Leigh Vasquez, N.P. 34422 E11.9 - [place] Z23 Office Visit 02/19/2017 11:30a [facility] [place] [address] M75.111 C.M.A. M19.011 M75.21 Z47.89 Office Visit 01/20/2017 11:30a [facility] [place] [address] M75.111 C.M.A. M19.011 M75.21 Z47.89 Office Visit 09/17/2016 9:40a [facility] Leigh Vasquez, N.P. 16746 J02.0 - [place] Office Visit 09/16/2016 10:40a [facility] Leigh Vasquez, N.P. 18676 Z00.01 - [place] Z12.31 E11.9 E78.00 G43.909 F32.9 K21.9 M25.511 Office Visit 09/12/2016 11:20a [facility] Leigh Vasquez, N.P. 17363 Z01.818 - [place] S46.011D E11.9 E78.00 Office Visit 09/09/2016 9:15a [facility] [place] [address] S46.011D C.M.A. S46.101D M19.211 S46.111D Office Visit 08/26/2016 8:15a [facility] [place] [address] S46.011D C.M.A. S46.101D M19.211 Office Visit 06/11/2016 9:00a [facility] Leigh Vasquez 04326 J02.9 - [place] N.P. Office Visit 06/03/2016 2:30p [facility] [place] [address] S46.011D Of C.M.A. S46.101D M75.21 M54.2 Office Visit 04/22/2016 2:00p [facility] [place] [address] S46.011A C.M.A. S46.101A M75.21 M54.2 Office Visit 03/19/2016 11:40a [facility] Leigh Vasquez, N.P. 37200 M25.511 - [place] Z23 Office Visit 02/21/2016 8:40a [facility] Leigh Vasquez, N.P. 85652 E11.9 - [place] Office Visit 11/05/2015 10:00a [facility] Leigh Vasquez, N.P. 64395 E11.9 - [place] E78.0 E11.649 Office Visit 10/26/2015 11:00a [facility] Julissa Curry 80258 R23.8 - Jeronimo Szymanski R22.2 Office Visit 03/19/2015 9:40a [facility] Leigh Vasquez, N.P. 76433 G43.909 - [place] Z23 E11.9 Office Visit 01/16/2015 9:20a [facility] Leigh Vasquez N.P. 47062 V70.0 - [place] V76.10 272.4 250.00 346.90 311 530.81 470 v03.82 Office Visit 10/19/2014 10:00a [facility] Leigh Vasquez N.P. 44739 250.00 - [place] Office Visit 03/07/2014 9:40a [facility] Leigh Vasquez N.P. 87668 250.00 - [place] V04.81 Office Visit 01/13/2014 9:00a [facility] Leigh Vasquez N.P. 76980 V70.0 - [place] V72.31 V76.10 272.4 530.81 733.90 311 346.90 250.00 Office Visit 12/05/2013 4:00p [facility] Leigh Vasquez, N.P. 99689 780.2 - [place] Office Visit 11/11/2013 4:20p [facility] Leigh Vasquez, N.P. 00841 780.2 - [place] 780.79 Office Visit 02/01/2013 1:20p [facility] Leigh Vasquez, N.P. 79043 790.21 - [place] Office Visit 01/12/2013 9:00a [facility] Leigh Vasquez N.P. 44713 V70.0 - [place] V72.31 V76.10 272.4 790.21 530.81 733.90 311 346.90 724.5 Office Visit 08/03/2012 11:00a [facility] Mary Jorge M.D. 49814 845.19 - [place] Office Visit 07/30/2012 11:00a [facility] Mary Jorge M.D. 95994 845.19 - [place] Office Visit 06/29/2012 3:40p [facility] Leigh Vasquez N.P. 29687 346.90 - [place] 272.4 723.1 Office Visit 05/17/2012 3:40p [facility] Leigh Vasquez, N.P. 16455 790.21 - [place] 272.4 Office Visit 04/12/2012 4:00p [facility] Rhianna Ingram M.D. 98688 786.2 - [place] Office Visit 01/07/2012 9:40a [facility] Leigh Vasquez, N.P. 87069 272.4 - [place] 790.21 Office Visit 12/29/2011 1:00p [facility] Leigh Vasquez, N.P. 96086 V70.0 - [place] V72.31 V76.10 272.4 790.21 733.90 V12.72 477.9 110.1 V04.89 Office Visit 10/21/2011 11:20a [facility] Leigh Vasquez, N.P. 65337 780.33 - [place] Office Visit 10/17/2011 12:45p [facility] Latrice العراقي, N.P. 17394 462 - [place] 528.00 345.80 Office Visit 01/20/2011 11:00a DO Not Use Medical Assisting Instructor[facility] Leigh Varn, 93054 466.0 N.P. 910.5 Office Visit 12/20/2010 1:40p DO Not Use Medical Assisting Instructor[facility] Leigh Varn, 75509 V70.0 N.P. V72.31 272.4 790.21 733.90 792.1 Office Visit 04/29/2010 9:30a DO Not Use Leigh Varn, 37812 346.90 Medical Assisting Instructor[facility] N.P. Office Visit 04/25/2010 9:15a DO Not Use Leigh Varn, 33095 784.0 Medical Assisting Instructor[facility] N.P. 386.11 Office Visit 01/18/2010 10:00a DO Not Use Leigh Varn, 30847 272.4 Medical Assisting Instructor[facility] N.P. Office Visit 10/15/2009 3:45p DO Not Use Leigh Varn, 51552 790.21 Medical Assisting Instructor[facility] N.P. 272.4 Office Visit 09/10/2009 3:45p DO Not Use Leigh Varn, 36996 346.90 Medical Assisting Instructor[facility] N.P. 733.90 300.00 Office Visit 08/06/2009 1:45p DO Not Use Leigh Vasquez, 49549 V72.31 Medical Assisting Instructor[facility] N.P. 272.4 300.00 V04.81 Office Visit 07/16/2009 12:00p DO Not Use Medical Assisting In[facility] Sanam Leo, 49347 558.9 M.D., FACP 300.00 Office Visit 05/04/2009 4:00p DO Not Use Kaleigh Zamudio, 44515 530.81 Medical Assisting Instructor-Imlay M.D. Office Visit 03/21/2009 3:15p DO Not Use Sanam Leo M.D., [id number] 477.9 Medical Assisting Instructor-Imlay FACP 530.81 Office Visit 03/06/2009 11:15a DO Not Use Medical Assisting Instructor-Imlay Sanam Leo [id number] 530.81 M.D., FACP 719.40 V04.81 Office Visit 10/16/2008 3:45p DO Not Use Medical Assisting Instructor-Imlay Sanam Leo, 12266 300.00 M.D., FACP Office Visit 09/12/2008 2:45p DO Not Use Medical Assisting Instructor-Imlay Sanamgildardo Leo, 82093 272.4 M.D., FACP 300.00 Office Visit 06/05/2008 10:00a DO Not Use Medical Assisting Instructor-Imlay Sanam Leo, 12130 789.07 M.D., FACP Office Visit 03/09/2008 4:00p DO Not Use Medical Assisting Instructor-Imlay Sanam Leo, 34027 277.7 M.D., FACP 272.4 Office Visit 02/25/2008 2:00p DO Not Use Leigh Vasquez, 22398 709.2 Medical Assisting Instructor-Imlay N.P. Office Visit 02/07/2008 11:30a DO Not Use Sanam Leo M.D., 76463 V72.31 Medical Assisting Instructor-Imlay FACP 401.1 780.79 Office Visit 12/14/2006 9:45a DO Not Use Kaleigh Zamudio, 33392 V70.0 Medical Assisting Instructor-Jeronimo Szymanski Plan of Care Future Appointment(s):01/05/2018 9:45 am - Sarai Kapoor MD at [facility]04/08/2018 9:40 am - Leigh Vasquez N.P. at [facility] - [id number]/21/2018 - Sarai Kapoor, MDM75.41 Impingement syndrome of right shoulderReferral:Naila Parrish MD, Surgery,NeurologicalFollow up: Follow up: 4-6 weeks please go to PT if you are still having pain then we will get an MRIM54.12 Radiculopathy, cervical region
--- NOTE | 2017-12-26 00:40 | ED ---
Upper Extremity Pain - HPI Summary HPI Summary: Patient complains of left rib pain and swelling as/P fall playing [employer]. Denies loss of sensation or function distally, any other pain or injury. No anti-coag. - History of Current Complaint Chief Complaint: EDExtremityUpper Stated Complaint: LT WRIST INJURY Time Seen by Provider: 12/25/17 22:56 Hx Obtained From: Patient Mechanism Of Injury: Fall From A Standing Position Onset/Duration: Started Hours Ago Timing: Constant Severity Initially: Moderate Severity Currently: Moderate Pain Location: Wrist Aggravating Factor(s): Movement, Flexion, Extension Alleviating Factor(s): Ice, Elevation Associated Signs & Symptoms: Positive: Swelling - Allergies/Home Medications Allergies/Adverse Reactions: Allergies Allergy/AdvReac Type Severity Reaction Status Date / Time adhesive tape Allergy Unknown Verified 12/25/17 19:31 Reaction Details meperidine [From Demerol] Allergy Unknown Verified 12/25/17 19:31 Reaction Details PMH/Surg Hx/FS Hx/Imm Hx Endocrine/Hematology History: Reports: Hx Diabetes - Type II medication and diet controlled, Hx Thyroid Disease - partial thyroid removal 2006, does not require medication Cardiovascular History: Reports: Hx Hypercholesterolemia Denies: Hx Congestive Heart Failure, Hx Hypertension, Hx Pacemaker/ICD GI History: Reports: Hx Gastroesophageal Reflux Disease - controlled with medication History: Reports: Other Problems/Disorders - PANCREATITIS, cholecystectomy 2008 Denies: Hx Renal Disease Musculoskeletal History: Reports: Hx Arthritis - Right shoulder Denies: Hx Rheumatoid Arthritis, Hx Osteoporosis Sensory History: Reports: Hx Contacts or Glasses - wears reading glasses Denies: Hx Hearing Aid Opthamlomology History: Reports: Hx Contacts or Glasses - wears reading glasses Neurological History: Reports: Hx Migraine - controlled with medication, approx 4x month, usually in a "cluster", Hx Seizures - last seizure 2009 Psychiatric History: Reports: Hx Anxiety - controlled with medication, Hx Depression - controlled with medication Denies: Hx Panic Disorder - Cancer History Hx Chemotherapy: No Hx Radiation Therapy: No - Surgical History Surgery Procedure, Year, and Place: CHOLECYSTECTOMY. PARTIAL THYROID REMOVAL. D&C Hx Anesthesia Reactions: Yes - difficulty arousing post anesthesia/rivera, requiring O2, quickly recovered - Immunization History Date of Tetanus Vaccine: UP TO DATE Date of Influenza Vaccine: 2012 Infectious Disease History: No Infectious Disease History: Denies: Traveled Outside the [place] in Last 30 Days - Social History Alcohol Use: Rare Substance Use Type: Reports: None Smoking Status (MU): Never Smoked Tobacco Review of Systems Constitutional: Negative Eyes: Negative ENT: Negative Cardiovascular: Negative Respiratory: Negative Gastrointestinal: Negative Genitourinary: Negative Musculoskeletal: Other Skin: Negative Neurological: Negative Psychological: Normal All Other Systems Reviewed And Are Negative: Yes Physical Exam - Summary Physical Exam Summary: PMS intact distally on left wrist. Positive snuffbox tenderness. Mild swelling to medial left wrist. Full range of motion of fingers on left hand. Pain with palpation of left medial wrist. No erythema, ecchymosis, extra warmth to left wrist joint. Triage Information Reviewed: Yes Vital Signs On Initial Exam: Initial Vitals Temp Pulse Resp BP Pulse Ox 99 F 84 15 117/84 94 12/25/17 19:31 12/25/17 19:31 12/25/17 19:31 12/25/17 19:31 12/25/17 19:31 Vital Signs Reviewed: Yes Appearance: Positive: Well-Appearing Skin: Positive: Warm Head/Face: Positive: Normal Head/Face Inspection Eyes: Positive: Normal Neck: Positive: Supple Respiratory/Lung Sounds: Positive: Clear to Auscultation Cardiovascular: Positive: Normal Abdomen Description: Positive: Nontender Musculoskeletal: Positive: Normal Neurological: Positive: Normal Psychiatric: Positive: Normal AVPU Assessment: Alert - Didi Coma Scale Best Eye Response: 4 - Spontaneous Best Motor Response: 6 - Obeys Commands Best Verbal Response: 5 - Oriented Coma Scale Total: 15 Diagnostics - Vital Signs Vital Signs Temp Pulse Resp BP Pulse Ox 12/25/17 21:49 97.6 F 80 16 121/61 99 12/25/17 19:31 99 F 84 15 117/84 94 - Laboratory Lab Statement: Any lab studies that have been ordered have been reviewed, and results considered in the medical decision making process. - Radiology wrist left Xray Interpretation: Positive (See Comments) - Possible occult fracture. Radiology Interpretation Completed By: ED Physician Course/Dx - Course Course Of Treatment: Patient complains of left rib pain and swelling as/P fall playing [employer]. Denies loss of sensation or function distally, any other pain or injury. No anti-coag. PMS intact distally on left wrist. Positive snuffbox tenderness. Mild swelling to medial left wrist. Full range of motion of fingers on left hand. Pain with palpation of left medial wrist. No erythema, ecchymosis, extra warmth to left wrist joint. Patient placed in sugar tong splint with thumb spica addition for potential scaphoid fracture due to snuffbox tenderness. Patient denied Rx for pain medication. Will follow-up with orthopedics on Thursday. - Diagnoses Provider Diagnoses: Fall, Wrist pain, acute Discharge - Sign-Out/Discharge Documenting (check all that apply): Patient Departure - Discharge Plan Condition: Stable Disposition: HOME Patient Education Materials: Wrist Fracture in Adults (ED), Suspected Fracture (ED), Scaphoid Fracture (ED) Referrals: Julissa Curry MD [Primary Care Provider] - Juanito Patel MD [Medical Doctor] - Additional Instructions: Follow-up with orthopedics Dr. Patel. Return to the ED for any new or worsening symptoms. - Billing Disposition and Condition Condition: STABLE Disposition: Home
[2017-12-26 01:00] VITALS: BP 112/65
--- NOTE | 2017-12-26 08:07 | RAD ---
INDICATION: Left wrist pain after a fall COMPARISON: None. TECHNIQUE: 3 views left wrist. REPORT: Depicted best on the AP view of the left wrist, there is cortical discontinuity along the medial and lateral margins of the distal left radius. A faint fracture line is seen oriented perpendicular to the axis of the bone. The remaining visualized bones are intact and appropriately aligned. IMPRESSION: Nondisplaced fracture of the distal left radius.
== END 2017-12-26 01:01 | disposition home or self-care (01) ==
LOC: ED 19:28
DX: S52.502A Unspecified fracture of the lower end of left radius, initial encounter for closed fracture (principal); R07.81 Pleurodynia; W19.XXXA Unspecified fall, initial encounter; Y93.73 Activity, racquet and hand sports; Y92.9 Unspecified place or not applicable; E11.9 Type 2 diabetes mellitus without complications; E78.00 Pure hypercholesterolemia, unspecified; K21.9 Gastro-esophageal reflux disease without esophagitis
CPT/HCPCS: 29125; 99282